=== PATIENT | female | born 1940 | race Caucasian/White ===

== ENCOUNTER 2020-07-07 09:44 | Inpatient (IN) | payer MEDICARE, OTHER ==
[~2020-07-07] VITALS: Ht 152.4 cm; Wt 53.1 kg
[~2020-07-07 09:44] MED LIST: ASPI-1397 PO; BUSP5TAB3 PO; DOCU-148 PO; DULO30CA52 PO; GABA600T13 PO; HYDR25TA4 PO; INSU100C10 SQ; INSU100V9 SQ; LORA-268 PO; MELO-102 PO; OXYC-658 PO; PANT40TA54 PO; SIMV-42 PO; [UNRECOGNIZED DRUG - CODE] PO
[2020-07-07] MEDS ORDERED: normal saline 1000ML IV soln IVB ONE (10:30)
[2020-07-07 10:55] LABS: BASOPHILS % (AUTO) 0.4 % (0-1); EOSINOPHILS # (AUTO) 0.2 X10'3 (0-0.9); EOSINOPHILS % (AUTO) 4.9 % (0-6); HEMATOCRIT 33.2 % (35.0-45.0); HEMOGLOBIN 10.9 g/dl (12.0-16.0); LYMPHOCYTES # (AUTO) 0.4 X10'3 (1.1-4.8); LYMPHOCYTES % (AUTO) 11.8 % (21-51); MEAN CORPUSCULAR HEMOGLOBIN 30.3 PG (27.0-31.0); MEAN CORPUSCULAR HGB CONC 32.9 g/dL (33.0-36.5); MEAN CORPUSCULAR VOLUME 92.2 FL (78-98); MEAN PLATELET VOLUME 8.3 FL (7.4-10.4); MONOCYTES # (AUTO) 0.6 X10'3 (0-0.9); MONOCYTES % (AUTO) 18.9 % (2-12); NEUTROPHILS # (AUTO) 2.1 X10'3 (1.8-7.7); PLATELET COUNT 219 X10'3 (140-440); RED CELL DISTRIBUTION WIDTH 17.8 % (11.5-14.5); WHITE BLOOD COUNT 3.2 X10'3 (4.5-11.0)
[2020-07-07] MEDS ORDERED: LIDOcaine 1% (10mg/ml) 2ml vial SQ ONE (11:10)
[2020-07-07 11:15] LABS: ALANINE AMINOTRANSFERASE 17 U/L (12-78); ALBUMIN 3.2 G/DL (3.4-5.0); ALBUMIN/GLOBULIN RATIO 0.6 (1.1-1.5); ALKALINE PHOSPHATASE 109 IU/L (46-116); ANION GAP 12 (8-16); ASPARTATE AMINO TRANSFERASE 25 U/L (10-37); BILIRUBIN,TOTAL 0.3 MG/DL (0.1-1.0); BLOOD UREA NITROGEN 28 MG/DL (7-18); BUN/CREATININE RATIO 26.9 (6.6-38.0); CALCIUM 9.9 MG/DL (8.5-10.1); CHLORIDE 103 MMOL/L (99-107); CREATININE 1.04 MG/DL (0.40-0.90); GLUCOSE 151 MG/DL (70-104); LIPASE 93 U/L (73-393); SODIUM 142 MMOL/L (135-145); TOTAL CARBON DIOXIDE 27.3 MMOL/L (24-32); TOTAL PROTEIN 8.3 G/DL (6.4-8.2); eGFR 51 ML/MIN
[2020-07-07 11:16] LABS: POTASSIUM 2.8 MMOL/L (3.5-5.1)
[2020-07-07] MEDS ORDERED: morphine 4 MG/ML inj SYRINge IV ONE (11:25)
[2020-07-07] MEDS: potassium Cl 10 mEq/100mL bag IV SCH ×2 (11:55→13:12)
[2020-07-07] MEDS ORDERED: ondansetron/PF 4mg/2ml inj IV PRN (13:00)
[2020-07-07] MEDS ORDERED: magnesium 4gm in 100ml NS 100 ML IV PRN (13:00)
[2020-07-07] MEDS ORDERED: magnesium 2GM in 50ml NS 50 ML IV PRN (13:00)
[2020-07-07] MEDS ORDERED: acetaminophen 325mg tablet PO PRN ×2 (13:00)
[2020-07-07] MEDS ORDERED: potassium Cl 20 mEq SR tablet PO PRN (13:00)
[2020-07-07] MEDS ORDERED: mag hydrox/Alum hydrox/simeth 30ml oral suspension PO PRN (13:00)
[2020-07-07] MEDS ORDERED: magnesium hydroxide 30ml (MOM) UD suspension PO PRN (13:00)
[2020-07-07] MEDS ORDERED: HYDROcodone/acetaminophen 5mg/325mg tablet PO PRN (13:00)
[2020-07-07] MEDS ORDERED: potassium Cl 40MEQ/1/2NS 520ml 520 ML IV PRN ×2 (13:00)
[2020-07-07 13:25] LABS: PARTIAL THROMBOPLASTIN TIME 30 SECONDS (22-32)
[2020-07-07 14:06] LABS: HEMOGLOBIN A1C 6.8 % (4.5-6.2)
[2020-07-07] MEDS: morphine 2 MG/ML inj. syringe IV PRN ×3 (14:06→23:26)
[2020-07-07] MEDS: diatr meglu/diatrizoate 30ml oral sol.-(3 dose) bottle PO SCH ×3 (14:07→19:47)
[2020-07-07] MEDS: normal saline 1000ml 1,000 ML IV SCH (14:54)
[2020-07-07 15:00] VITALS: BP 129/55
[2020-07-07 16:04] LABS: MAGNESIUM 1.6 MG/DL (1.5-2.4); POTASSIUM 3.6 MMOL/L (3.5-5.1)
--- NOTE | 2020-07-07 16:23 | NUR ---
PAGER ID: [phone] MESSAGE: ARYAN BEE. PT REQ IMMODIUM AD. NICKI [phone]
[2020-07-07] MEDS ORDERED: loperamide 2mg capsule PO PRN (16:25)
--- NOTE | 2020-07-07 17:23 | NUR ---
PAGER ID: [phone] MESSAGE: ARYAN BEE. PT DIABETIC. NO PROTOCOL ORDERED! NICKI [phone]
[2020-07-07] MEDS ORDERED: MESSAGE TO PHARMACY PO ONE (17:25)
[2020-07-07] MEDS ORDERED: dextrose ORAL solution 15 GM/59 ML bottle PO PRN ×2 (17:25)
[2020-07-07] MEDS ORDERED: glucagon, human recombinant 1mg kit SUBCUT PRN (17:25)
[2020-07-07] MEDS ORDERED: dextrose 50%-water 50ml dispensing syringe IV PRN ×2 (17:25)
[2020-07-07 18:00] VITALS: BP 122/84
[2020-07-07] MEDS ORDERED: iohexol 300mg/ml 100ml inj. ONE (18:45)
--- NOTE | 2020-07-07 18:46 | NUR ---
Patient in room ORTHO 4011. I have received report from NICKI BRAN and had the opportunity to ask questions and assume patient care.
[2020-07-07] MEDS ORDERED: HYDR-3972 PO (19:03)
[2020-07-07] MEDS ORDERED: GABA600T13 PO (19:03)
[2020-07-07] MEDS ORDERED: ASPI-1397 PO (19:03)
[2020-07-07] MEDS: insulin Lispro (HumaLOG) vial - multi-dose SQ SCH (19:03)
[2020-07-07] MEDS ORDERED: IBUP-860 PO (19:03)
--- NOTE | 2020-07-07 19:59 | NUR ---
TO CT NOW VIA W/C FOR ABDOMEN/PELVIC STUDY ORDERED. 3RD DOSE OF GASTROGRAPH GIVEN ORDERED.
[2020-07-07] MEDS: K and/or MAG REPLACEMENT MC SCH (20:00)
--- NOTE | 2020-07-07 20:10 | NUR ---
BACK IN ROOM. CT COMPLETED. PATIENT ASKING FOR SOMETHING TO EAT BUT HAS NPO ORDER. WILL F/U WITH
[2020-07-07] MEDS: insulin glargine (Lantus) pen - multi-dose SQ SCH (21:00)
[2020-07-07] MEDS ORDERED: temazepam 15mg capsule PO PRN (21:00)
[2020-07-07 22:00] VITALS: BP 121/67
--- NOTE | 2020-07-07 23:39 | NUR ---
AWAKENED FROM SOUND SLEEP WITH EXCRUTIATING ABDOMINAL PAIN. MORPHINE GIVEN IVP AND PAIN SLOWLY ABATED TO THE POINT SHE WAS ABLE TO GET UP TO THE BEDSIDE COMMODE TO VOID. BACK TO BED AND POSITIONED FOR COMFORT FOB UP. CALL LIGHT GIVEN TO PATIENT AND ENC'D IT'S USE FOR NEEDS.
[2020-07-08] MEDS: HYDROcodone/acetaminophen 10/325mg tab PO PRN (01:13)
[2020-07-08] MEDS: normal saline 1000ml 1,000 ML IV SCH ×3 (01:51→19:05)
[2020-07-08] MEDS ORDERED: LORazepam 0.5 MG tablet PO ONE (05:55)
[2020-07-08 06:00] VITALS: BP 132/64
--- NOTE | 2020-07-08 06:31 | NUR ---
Patient in room ORTHO 4011. I have received report from DELORES torres and had the opportunity to ask questions and assume patient care.
--- NOTE | 2020-07-08 06:44 | NUR ---
Problems reprioritized. Patient report given, questions answered & plan of care reviewed with DANILO BRAN.
--- NOTE | 2020-07-08 07:05 | NUR ---
PAGER ID: [phone] MESSAGE: DANILO BRAN [phone] RE: Kassy Rodriguez [id number].. PT IS HAVING ANXIETY ATTACK. PT TAKES ATIVAN AT HOME. CAN I PLEASE HAVE ORDER. THANK YOU.
[2020-07-08 07:13] LABS: BASOPHILS % (AUTO) 0.6 % (0-1); EOSINOPHILS # (AUTO) 0.1 X10'3 (0-0.9); EOSINOPHILS % (AUTO) 5.7 % (0-6); HEMATOCRIT 29.2 % (35.0-45.0); HEMOGLOBIN 9.5 g/dl (12.0-16.0); LYMPHOCYTES # (AUTO) 0.4 X10'3 (1.1-4.8); LYMPHOCYTES % (AUTO) 20.3 % (21-51); MEAN CORPUSCULAR HEMOGLOBIN 30.2 PG (27.0-31.0); MEAN CORPUSCULAR HGB CONC 32.7 g/dL (33.0-36.5); MEAN CORPUSCULAR VOLUME 92.3 FL (78-98); MEAN PLATELET VOLUME 8.3 FL (7.4-10.4); MONOCYTES # (AUTO) 0.6 X10'3 (0-0.9); MONOCYTES % (AUTO) 26.4 % (2-12); PLATELET COUNT 154 X10'3 (140-440); RED BLOOD COUNT 3.16 X10'6 (4.20-5.60); RED CELL DISTRIBUTION WIDTH 17.7 % (11.5-14.5); WHITE BLOOD COUNT 2.2 X10'3 (4.5-11.0)
[2020-07-08 07:29] LABS: ALANINE AMINOTRANSFERASE 15 U/L (12-78); ALBUMIN 2.6 G/DL (3.4-5.0); ALBUMIN/GLOBULIN RATIO 0.6 (1.1-1.5); ALKALINE PHOSPHATASE 93 IU/L (46-116); ANION GAP 15 (8-16); ASPARTATE AMINO TRANSFERASE 26 U/L (10-37); BILIRUBIN,TOTAL 0.4 MG/DL (0.1-1.0); BLOOD UREA NITROGEN 18 MG/DL (7-18); BUN/CREATININE RATIO 35.3 (6.6-38.0); CHLORIDE 102 MMOL/L (99-107); CREATININE 0.51 MG/DL (0.40-0.90); GLUCOSE 174 MG/DL (70-104); MAGNESIUM 1.4 MG/DL (1.5-2.4); POTASSIUM 3.2 MMOL/L (3.5-5.1); SODIUM 141 MMOL/L (135-145); TOTAL CARBON DIOXIDE 24.4 MMOL/L (24-32); TOTAL PROTEIN 7.2 G/DL (6.4-8.2); eGFR > 90 ML/MIN
--- NOTE | 2020-07-08 07:36 | NUR ---
PAGER ID: [phone] MESSAGE: DANILO [id number] RE: ARYAN BEE [id number]. 2ND. PT WOULD LIKE HOME MED ATIVAN WELLAS DIET. THANK YOU.
[2020-07-08] MEDS: K and/or MAG REPLACEMENT MC SCH ×2 (08:12→20:00)
[2020-07-08] MEDS ORDERED: LORA-268 PO (08:16)
[2020-07-08] MEDS: LORazepam 1 MG tablet PO PRN ×2 (08:16→15:13)
[2020-07-08] MEDS ORDERED: SIMV-42 PO (08:16)
[2020-07-08] MEDS ORDERED: HYDR25TA4 PO (08:16)
[2020-07-08] MEDS: busPIRone 5mg tablet PO SCH ×3 (08:16→20:54)
[2020-07-08] MEDS ORDERED: INSU100V9 SQ (08:16)
[2020-07-08] MEDS: potassium Cl 20 mEq SR tablet PO PRN ×2 (08:17→18:56)
[2020-07-08] MEDS: magnesium Cl slow-release 64mg tablet PO PRN ×2 (08:18→18:56)
[2020-07-08] MEDS ORDERED: pneumococcal 23-VAL P-sac vacc 25 mcg/0.5ml vial IMVAC ONE (08:50)
[2020-07-08] MEDS: insulin Lispro (HumaLOG) vial - multi-dose SQ SCH ×3 (09:45→19:03)
[2020-07-08 10:00] VITALS: BP 153/72
--- NOTE | 2020-07-08 10:37 | NUR ---
DM/Malnutrition Consults: Pt hx T2DM A1C 6.8 appropriate given age. Pt admit w/ increased abdominal pain past week hx pancreatic CA receiving radiation currently and s/p Whipple procedure April 25 per EMR. Amount of wt loss not reported in nursing malnutrition screen. Pt has normal strength, no edema/wounds, and PO pending as diet just advanced to carb controlled today from prior NPO. Though wt loss may be possible given pt hx currently lacks minimum of two malnutrition criteria at this time. Will monitor for additional criteria this admit. Addendum: 07/08/20 at [address] Amended: Links added.
[2020-07-08 10:57] LABS: ANISOCYTOSIS 1+; HYPOCHROMASIA 2+; PLATELET ESTIMATE NORMAL; TOTAL CELLS COUNTED 100
[2020-07-08] MEDS: morphine 2 MG/ML inj. syringe IV PRN ×3 (12:26→21:03)
[2020-07-08] MEDS: loperamide 2mg capsule PO PRN (13:33)
--- NOTE | 2020-07-08 14:28 | NUR ---
Upon returning for lunch at 1410, charge nurse informed primary nurse of patients passing. notified, Cheko Mccormick called and notified. Multiple attempts to call family however unsuccessful. Will continue to try and reach next of kin.
[2020-07-08] MEDS: diphenhydrAMINE 50 mg/ml inj IV PRN (14:58)
[2020-07-08] MEDS: predniSONE 20 mg tablet PO SCH (15:27)
[2020-07-08 18:00] VITALS: BP 168/72
--- NOTE | 2020-07-08 18:41 | NUR ---
Problems reprioritized. Patient report given, questions answered & plan of care reviewed with Fatoumata BRAN.
[2020-07-08] MEDS: insulin glargine (Lantus) pen - multi-dose SQ SCH (21:01)
[2020-07-08 22:00] VITALS: BP 150/71
[2020-07-09] MEDS: potassium Cl 20 mEq SR tablet PO PRN (00:16)
[2020-07-09] MEDS: LORazepam 1 MG tablet PO PRN ×2 (00:16→07:33)
[2020-07-09] MEDS: loperamide 2mg capsule PO PRN ×2 (01:09→08:39)
[2020-07-09] MEDS: normal saline 1000ml 1,000 ML IV SCH ×2 (04:54→15:00)
[2020-07-09] MEDS: morphine 2 MG/ML inj. syringe IV PRN ×2 (04:54→11:15)
[2020-07-09 06:00] VITALS: BP 134/50
--- NOTE | 2020-07-09 06:28 | NUR ---
Problems reprioritized. Patient report given, questions answered & plan of care reviewed with YINA CARRASCO.
--- NOTE | 2020-07-09 06:53 | NUR ---
Patient in room ORTHO 4011. I have received report from DORITA BRAN and had the opportunity to ask questions and assume patient care.
[2020-07-09] MEDS: busPIRone 5mg tablet PO SCH ×2 (07:32→12:41)
[2020-07-09] MEDS: predniSONE 20 mg tablet PO SCH (07:33)
[2020-07-09] MEDS: K and/or MAG REPLACEMENT MC SCH (08:00)
[2020-07-09] MEDS: insulin Lispro (HumaLOG) vial - multi-dose SQ SCH ×2 (08:41→14:01)
[2020-07-09] MEDS: HYDROcodone/acetaminophen 10/325mg tab PO PRN ×2 (09:42→16:18)
[2020-07-09 10:00] VITALS: BP 180/83
[2020-07-09 10:08] LABS: BASOPHILS % (AUTO) 0.3 % (0-1); EOSINOPHILS % (AUTO) 0.1 % (0-6); HEMATOCRIT 28.5 % (35.0-45.0); HEMOGLOBIN 9.3 g/dl (12.0-16.0); LYMPHOCYTES # (AUTO) 0.3 X10'3 (1.1-4.8); MEAN CORPUSCULAR HEMOGLOBIN 29.9 PG (27.0-31.0); MEAN CORPUSCULAR HGB CONC 32.6 g/dL (33.0-36.5); MEAN CORPUSCULAR VOLUME 91.7 FL (78-98); MEAN PLATELET VOLUME 8.1 FL (7.4-10.4); MONOCYTES # (AUTO) 0.3 X10'3 (0-0.9); MONOCYTES % (AUTO) 13.3 % (2-12); NEUTROPHILS # (AUTO) 1.9 X10'3 (1.8-7.7); NEUTROPHILS % (AUTO) 76.3 % (42-75); PLATELET COUNT 161 X10'3 (140-440); RED BLOOD COUNT 3.11 X10'6 (4.20-5.60); RED CELL DISTRIBUTION WIDTH 17.7 % (11.5-14.5); WHITE BLOOD COUNT 2.5 X10'3 (4.5-11.0)
[2020-07-09 10:21] LABS: ALANINE AMINOTRANSFERASE 17 U/L (12-78); ALBUMIN 2.4 G/DL (3.4-5.0); ALBUMIN/GLOBULIN RATIO 0.5 (1.1-1.5); ALKALINE PHOSPHATASE 84 IU/L (46-116); ANION GAP 11 (8-16); ASPARTATE AMINO TRANSFERASE 21 U/L (10-37); BILIRUBIN,TOTAL 0.2 MG/DL (0.1-1.0); BLOOD UREA NITROGEN 17 MG/DL (7-18); BUN/CREATININE RATIO 30.4 (6.6-38.0); CALCIUM 8.9 MG/DL (8.5-10.1); CHLORIDE 107 MMOL/L (99-107); CREATININE 0.56 MG/DL (0.40-0.90); GLUCOSE 228 MG/DL (70-104); MAGNESIUM 1.3 MG/DL (1.5-2.4); POTASSIUM 3.9 MMOL/L (3.5-5.1); SODIUM 144 MMOL/L (135-145); TOTAL CARBON DIOXIDE 25.9 MMOL/L (24-32); TOTAL PROTEIN 6.8 G/DL (6.4-8.2); eGFR > 90 ML/MIN
[2020-07-09 11:01] LABS: ANISOCYTOSIS 1+; HYPOCHROMASIA 1+; PLATELET ESTIMATE NORMAL; TOTAL CELLS COUNTED 100
[2020-07-09] MEDS: magnesium Cl slow-release 64mg tablet PO PRN (11:10)
[2020-07-09] MEDS: diphenhydrAMINE 50 mg/ml inj IV PRN (11:15)
[2020-07-09] MEDS ORDERED: OXYC-145 PO (13:50)
[2020-07-09] MEDS ORDERED: heparin sodium, porcine/PF 100unit/ml 5ML syringe IV SCH (15:10)
--- NOTE | 2020-07-09 16:00 | NUR ---
CONFIRMED WITH DR FLOWERS HEPARIN 500 UNITS TO BE LOADED INTO PORT PRIOR TO DEACCESS. PER , ORDER HEPARIN FLUSH AND GIVE. Ty CARVER PICC RN
--- NOTE | 2020-07-09 17:01 | NUR ---
PORT LOADED WITH HEPARIN 500 UNITS AFTER CHECKING FOR BLOOD RETURN AND FLUSH. PORT THEN DEACCESSED USING STERILE TECHNIQUE. Ty CARVER PICC YINA
--- NOTE | 2020-07-09 17:35 | NUR ---
Pt discharged at 1700 with in private vehicle. Portacath removed from picc nurse without complications. Belongings sent with patient. all questions reviewed/ answered
== END 2020-07-09 17:00 | disposition home or self-care (01) | DRG 815 ==
LOC: ER 09:45 → ED HOLD 12:58 → ORTHO 4S 14:28
PROVIDERS: ADMIT Family Medicine; ATTEND Family Medicine
PROC: BW211ZZ Computerized Tomography (CT Scan) of Abdomen and Pelvis using Low Osmolar Contrast (ICD-10-PCS; 2020-07-07)
PROC: 3E0234Z Introduction of Serum, Toxoid and Vaccine into Muscle, Percutaneous Approach (ICD-10-PCS; principal; 2020-07-08)
DX: D73.5 Infarction of spleen (principal); C25.9 Malignant neoplasm of pancreas, unspecified; L29.9 Pruritus, unspecified; D64.9 Anemia, unspecified; E11.42 Type 2 diabetes mellitus with diabetic polyneuropathy; E78.5 Hyperlipidemia, unspecified; K21.9 Gastro-esophageal reflux disease without esophagitis; E87.6 Hypokalemia; F41.1 Generalized anxiety disorder; I10 Essential (primary) hypertension; Z87.442 Personal history of urinary calculi; Z90.411 Acquired partial absence of pancreas; Z90.49 Acquired absence of other specified parts of digestive tract; Z23 Encounter for immunization
CPT/HCPCS: 36415; 74177; 80053; 82948; 83036; 83690; 83735; 84132; 85007; 85025; 85610; 85730; 87081; 96374; 96375; 97116; 97162; 97530; 99285; G0378; J1200; J1642; J1815; J2001; J2270; J3480; J7030; J7512; Q9963; Q9967

== ENCOUNTER 2020-09-04 08:32 | Outpatient (CLI) | payer MEDICARE ==
[~2020-09-04 08:32] MED LIST changes: -BUSP5TAB3 PO; -DOCU-148 PO; -DULO30CA52 PO; +HYDR-3972 PO; +IBUP-860 PO; -INSU100C10 SQ; -MELO-102 PO; +OXYC-145 PO; -OXYC-658 PO; -PANT40TA54 PO; -[UNRECOGNIZED DRUG - CODE] PO
[2020-09-04] MEDS ORDERED: iohexol 300mg/ml 100ml inj. ONE (09:04)
== END 2020-09-04 23:59 | disposition home or self-care (01) ==
LOC: 64 CT 08:32
PROVIDERS: ATTEND Internal Medicine
DX: C25.0 Malignant neoplasm of head of pancreas (principal); J47.9 Bronchiectasis, uncomplicated; J98.4 Other disorders of lung; J98.11 Atelectasis
CPT/HCPCS: 71260; 74177; Q9967

== ENCOUNTER 2020-11-12 20:33 | Inpatient (IN) | payer MEDICARE ==
[~2020-11-12] VITALS: Ht 152.4 cm; Wt 61.4 kg
[2020-11-12] MEDS ORDERED: iohexol 300mg/ml 100ml inj. ONE (20:59)
[2020-11-12] MEDS ORDERED: dextrose 5%-normal saline 1,000 ML IV ONE (21:00)
[2020-11-12 21:55] LABS: BASOPHILS % (AUTO) 0.2 % (0-1); EOSINOPHILS # (AUTO) 0.1 X10'3 (0-0.9); EOSINOPHILS % (AUTO) 0.8 % (0-6); HEMATOCRIT 35.4 % (35.0-45.0); HEMOGLOBIN 11.4 g/dl (12.0-16.0); LYMPHOCYTES # (AUTO) 0.4 X10'3 (1.1-4.8); LYMPHOCYTES % (AUTO) 5.7 % (21-51); MEAN CORPUSCULAR HEMOGLOBIN 33.8 PG (27.0-31.0); MEAN CORPUSCULAR HGB CONC 32.3 g/dL (33.0-36.5); MEAN CORPUSCULAR VOLUME 104.7 FL (78-98); MEAN PLATELET VOLUME 7.2 FL (7.4-10.4); MONOCYTES # (AUTO) 0.7 X10'3 (0-0.9); MONOCYTES % (AUTO) 11.7 % (2-12); NEUTROPHILS # (AUTO) 5.2 X10'3 (1.8-7.7); NEUTROPHILS % (AUTO) 81.6 % (42-75); PLATELET COUNT 254 X10'3 (140-440); RED BLOOD COUNT 3.38 X10'6 (4.20-5.60); RED CELL DISTRIBUTION WIDTH 15.6 % (11.5-14.5); WHITE BLOOD COUNT 6.3 X10'3 (4.5-11.0)
[2020-11-12 22:03] LABS: ALANINE AMINOTRANSFERASE 47 U/L (12-78); ALBUMIN/GLOBULIN RATIO 0.6 (1.1-1.5); ALKALINE PHOSPHATASE 187 IU/L (46-116); ANION GAP 7 (8-16); ASPARTATE AMINO TRANSFERASE 63 U/L (10-37); BILIRUBIN,TOTAL 0.4 MG/DL (0.1-1.0); BLOOD UREA NITROGEN 16 MG/DL (7-18); BUN/CREATININE RATIO 20.3 (6.6-38.0); CALCIUM 8.9 MG/DL (8.5-10.1); CHLORIDE 102 MMOL/L (99-107); CREATININE 0.79 MG/DL (0.40-0.90); GLUCOSE 115 MG/DL (70-104); POTASSIUM 3.3 MMOL/L (3.5-5.1); SODIUM 139 MMOL/L (135-145); TOTAL CARBON DIOXIDE 29.6 MMOL/L (24-32); TOTAL PROTEIN 7.7 G/DL (6.4-8.2); eGFR 70 ML/MIN
[2020-11-12 22:06] LABS: MAGNESIUM 1.9 MG/DL (1.5-2.4); TROPONIN I 0.07 NG/ML (0.0-0.05)
[2020-11-12] MEDS ORDERED: CefTRIAXone 2gm/D5W 50ml BAG 50 ML IV ONE (22:30)
[2020-11-12] MEDS ORDERED: vancomycin/NS 1 GM ADD-VANTAGE 250 ML IV ONE (22:30)
[2020-11-12] MEDS ORDERED: LORazepam 2 mg/ml vial IV ONE (22:50)
[2020-11-12] MEDS ORDERED: Melatonin 3mg tablet PO ONE (22:59)
[2020-11-12] MEDS ORDERED: PEG 3350/Na sulf,bicarb,Cl/KCl oral sol 4 liter bottle PO ONE (23:45)
[2020-11-12] MEDS ORDERED: methylnaltrexone br 12mg/0.6ml inj***SubQ only SQ ONE (23:55)
[2020-11-13] MEDS ORDERED: magnesium hydroxide 30ml (MOM) UD suspension PO PRN (00:05)
[2020-11-13] MEDS ORDERED: dextrose ORAL solution 15 GM/59 ML bottle PO PRN ×2 (00:05)
[2020-11-13] MEDS ORDERED: acetaminophen 325mg tablet PO PRN ×2 (00:05)
[2020-11-13] MEDS ORDERED: ondansetron/PF 4mg/2ml inj IV PRN (00:05)
[2020-11-13] MEDS ORDERED: mag hydrox/Alum hydrox/simeth 30ml oral suspension PO PRN (00:05)
[2020-11-13] MEDS ORDERED: dextrose 50%-water 50ml dispensing syringe IV PRN ×2 (00:05)
[2020-11-13] MEDS ORDERED: MESSAGE TO PHARMACY PO ONE (00:05)
[2020-11-13] MEDS ORDERED: glucagon, human recombinant 1mg kit SUBCUT PRN (00:05)
[2020-11-13] MEDS ORDERED: normal saline 1000ml 1,000 ML IV SCH (00:05)
--- NOTE | 2020-11-13 00:22 | NUR ---
BGL 73
--- NOTE | 2020-11-13 00:23 | NUR ---
PT RECEIVED ATIVAN AND IS DROWSY, UNABLE TO GIVE GOLYTELY AT THIS TIME. WILL TRY AGAIN LATER.
[2020-11-13] MEDS ORDERED: LEVO50TA8 PO (01:22)
[2020-11-13] MEDS ORDERED: BUSP10TA3 PO (01:23)
[2020-11-13] MEDS ORDERED: MELO-102 PO (01:26)
[2020-11-13 01:57] LABS: HEMOGLOBIN A1C 8.6 % (4.5-6.2)
--- NOTE | 2020-11-13 02:10 | NUR ---
title closer, Veronica, received report. Pt arrived on the unit via gurney and a slide board was used to transfer her into bed. She was on 2L via nasal cannula, with D5NS running at 50 mls/hr. accompanied pt to floor and took her belongings home with him. Pt has no signs of distress, will continue to monitor.
[2020-11-13] MEDS ORDERED: INSU100V13 SQ (02:29)
[2020-11-13] MEDS ORDERED: PRE5T PO (02:29)
[2020-11-13] MEDS ORDERED: LEVO75CA5 PO (02:29)
[2020-11-13 02:47] VITALS: BP 119/67
[2020-11-13] MEDS ORDERED: LORazepam 2 mg/ml vial IV PRN (03:20)
[2020-11-13] MEDS ORDERED: dextrose 5%-1/2 normal saline 1,000 ML IV SCH (03:20)
[2020-11-13] MEDS ORDERED: LORazepam 0.5 MG tablet PO PRN (05:10)
[2020-11-13] MEDS ORDERED: HYDR-3686 PO (05:40)
--- NOTE | 2020-11-13 06:25 | NUR ---
Problems reprioritized. Patient report given, questions answered & plan of care reviewed with Pavel RN.
--- NOTE | 2020-11-13 06:51 | NUR ---
Patient in room CAMIL[facility] 346. I have received report from LETY BRAN and had the opportunity to ask questions and assume patient care.
[2020-11-13 07:11] VITALS: BP 115/65
[2020-11-13] MEDS ORDERED: vancomycin/NS 1 GM ADD-VANTAGE 250 ML X 1 DOSE IV ONE (08:25)
[2020-11-13] MEDS: docusate sod 100mg capsule PO SCH ×2 (08:31→19:39)
[2020-11-13] MEDS: levoTHYROXINE 25mcg tablet PO SCH (08:32)
[2020-11-13] MEDS: gabapentin 300mg capsule PO SCH ×3 (08:33→19:38)
[2020-11-13] MEDS: HYDROchlorothiazide 25mg tablet PO SCH (08:34)
[2020-11-13] MEDS: busPIRone 5mg tablet PO SCH ×2 (08:35→19:38)
[2020-11-13] MEDS: morphine 2 MG/ML inj. syringe IV PRN ×3 (08:36→21:12)
[2020-11-13] MEDS: piperacillin/tazo 4.5gm/100ml 100 ML IV SCH ×2 (08:49→16:54)
[2020-11-13 09:29] LABS: BASOPHILS % (AUTO) 0.4 % (0-1); EOSINOPHILS % (AUTO) 0.9 % (0-6); HEMATOCRIT 27.5 % (35.0-45.0); HEMOGLOBIN 8.9 g/dl (12.0-16.0); LYMPHOCYTES # (AUTO) 0.3 X10'3 (1.1-4.8); LYMPHOCYTES % (AUTO) 5.9 % (21-51); MEAN CORPUSCULAR HEMOGLOBIN 33.7 PG (27.0-31.0); MEAN CORPUSCULAR HGB CONC 32.5 g/dL (33.0-36.5); MEAN CORPUSCULAR VOLUME 103.7 FL (78-98); MEAN PLATELET VOLUME 7.3 FL (7.4-10.4); MONOCYTES # (AUTO) 0.5 X10'3 (0-0.9); NEUTROPHILS # (AUTO) 4.4 X10'3 (1.8-7.7); NEUTROPHILS % (AUTO) 82.8 % (42-75); PLATELET COUNT 203 X10'3 (140-440); RED BLOOD COUNT 2.66 X10'6 (4.20-5.60); RED CELL DISTRIBUTION WIDTH 15.2 % (11.5-14.5); WHITE BLOOD COUNT 5.3 X10'3 (4.5-11.0)
[2020-11-13 09:45] LABS: ALANINE AMINOTRANSFERASE 39 U/L (12-78); ALBUMIN 2.2 G/DL (3.4-5.0); ALBUMIN/GLOBULIN RATIO 0.6 (1.1-1.5); ALKALINE PHOSPHATASE 137 IU/L (46-116); ANION GAP 9 (8-16); ASPARTATE AMINO TRANSFERASE 46 U/L (10-37); BILIRUBIN,TOTAL 0.3 MG/DL (0.1-1.0); BLOOD UREA NITROGEN 12 MG/DL (7-18); BUN/CREATININE RATIO 16.4 (6.6-38.0); CALCIUM 7.5 MG/DL (8.5-10.1); CHLORIDE 101 MMOL/L (99-107); CREATININE 0.73 MG/DL (0.40-0.90); GLUCOSE 202 MG/DL (70-104); POTASSIUM 3.7 MMOL/L (3.5-5.1); SODIUM 138 MMOL/L (135-145); TOTAL CARBON DIOXIDE 28.5 MMOL/L (24-32); TOTAL PROTEIN 5.8 G/DL (6.4-8.2); eGFR 77 ML/MIN
[2020-11-13 11:00] VITALS: BP 95/63
[2020-11-13 11:47] LABS: CLARITY,URINE CLEAR (Clear); COLOR,URINE YELLOW (Yellow); GLUCOSE, URINE 250 mg/dl (Neg); KETONES,URINE NEGATIVE (Neg); LEUKOCYTE ESTERASE ,URINE NEGATIVE (Neg); NITRITES, URINE NEGATIVE (Neg); OCCULT BLOOD,URINE NEGATIVE (Neg); PROTEIN,URINE NEGATIVE (Neg); UROBILINOGEN,URINE 0.2 E.U/dL (0.2-1.0)
[2020-11-13 11:49] LABS: UA COLLECTION TYPE NON-SPECIFIED
--- NOTE | 2020-11-13 14:00 | NUR ---
Malnutrition consult: Pt reports 24-33 lb wt loss with decreased appetite per EMR. Current documented scaled wt is -3.54 kg from scaled wt hx in EMR 05/15/20, this is non-significant wt loss of 5.4% in 6 months. Pt on a CHO controlled diet, pending first meal since diet advancement from NPO. Pt with no documented significant decrease in muscle strength or edema. Pt currently lacks a minimum of two criteria for malnutrition. Noted pt with T2DM, current A1c is 8.6%, well controlled for age. DM education not warranted at this time. Pt admit for hypoglycemia. Per H&P pt reports taking insulin though hadn't eaten prior to medical record retrieval specialist. Will continue to follow. Addendum: 11/13/20 at [address] Amended: Links added.
[2020-11-13 18:00] VITALS: BP 114/66
[2020-11-13] MEDS ORDERED: CYCL-1 PO (18:18)
--- NOTE | 2020-11-13 18:33 | NUR ---
Problems reprioritized. Patient report given, questions answered & plan of care reviewed with Sugar BRAN.
--- NOTE | 2020-11-13 18:34 | NUR ---
Patient in room CAMILLE 346. I have received report from Pavel BRAN and had the opportunity to ask questions and assume patient care.
[2020-11-13] MEDS: lactobacillus rhamnosus 10,000 MMU CELLS/CAPSULE PO SCH (19:38)
[2020-11-13] MEDS: atorvastatin 10mg tablet PO SCH (19:48)
[2020-11-13] MEDS: normal saline 1000ml 1,000 ML IV SCH (20:08)
[2020-11-13] MEDS: insulin glargine (Lantus) pen - multi-dose SQ SCH (22:07)
[2020-11-13] MEDS: vancomycin/NS 1 GM ADD-VANTAGE 250 ML X 1 DOSE IV SCH (22:17)
[2020-11-14] VITALS: BP 111/62
[2020-11-14] MEDS: piperacillin/tazo 4.5gm/100ml 100 ML IV SCH ×3 (00:41→16:31)
[2020-11-14] MEDS: morphine 2 MG/ML inj. syringe IV PRN ×4 (01:19→20:36)
[2020-11-14 06:14] LABS: EOSINOPHILS # (AUTO) 0.1 X10'3 (0-0.9); HEMATOCRIT 25.4 % (35.0-45.0); LYMPHOCYTES # (AUTO) 0.4 X10'3 (1.1-4.8); NEUTROPHILS # (AUTO) 2.7 X10'3 (1.8-7.7); RED BLOOD COUNT 2.45 X10'6 (4.20-5.60)
[2020-11-14 06:17] LABS: BASOPHILS % (AUTO) 0.9 % (0-1); EOSINOPHILS % (AUTO) 1.5 % (0-6); HEMOGLOBIN 8.3 g/dl (12.0-16.0); LYMPHOCYTES % (AUTO) 11.6 % (21-51); MEAN CORPUSCULAR HEMOGLOBIN 33.9 PG (27.0-31.0); MEAN CORPUSCULAR HGB CONC 32.7 g/dL (33.0-36.5); MEAN PLATELET VOLUME 7.4 FL (7.4-10.4); MONOCYTES # (AUTO) 0.6 X10'3 (0-0.9); MONOCYTES % (AUTO) 14.7 % (2-12); NEUTROPHILS % (AUTO) 71.3 % (42-75); PLATELET COUNT 193 X10'3 (140-440); RED CELL DISTRIBUTION WIDTH 15.3 % (11.5-14.5); WHITE BLOOD COUNT 3.9 X10'3 (4.5-11.0)
[2020-11-14 06:27] LABS: ALANINE AMINOTRANSFERASE 36 U/L (12-78); ALBUMIN 2.1 G/DL (3.4-5.0); ALBUMIN/GLOBULIN RATIO 0.6 (1.1-1.5); ALKALINE PHOSPHATASE 150 IU/L (46-116); ANION GAP 7 (8-16); ASPARTATE AMINO TRANSFERASE 50 U/L (10-37); BILIRUBIN,TOTAL 0.2 MG/DL (0.1-1.0); BLOOD UREA NITROGEN 14 MG/DL (7-18); BUN/CREATININE RATIO 15.1 (6.6-38.0); CALCIUM 7.6 MG/DL (8.5-10.1); CHLORIDE 105 MMOL/L (99-107); CREATININE 0.93 MG/DL (0.40-0.90); GLUCOSE 116 MG/DL (70-104); POTASSIUM 3.7 MMOL/L (3.5-5.1); SODIUM 142 MMOL/L (135-145); TOTAL PROTEIN 5.5 G/DL (6.4-8.2); eGFR 58 ML/MIN
--- NOTE | 2020-11-14 06:52 | NUR ---
Problems reprioritized. Patient report given, questions answered & plan of care reviewed with Diamante BRAN.
--- NOTE | 2020-11-14 06:57 | NUR ---
Patient in room CAMILLE 346. I have received report from YINA Wooten and had the opportunity to ask questions and assume patient care.
[2020-11-14 07:00] VITALS: BP 107/68
[2020-11-14] MEDS: docusate sod 100mg capsule PO SCH ×2 (10:07→19:48)
[2020-11-14] MEDS: levoTHYROXINE 25mcg tablet PO SCH (10:07)
[2020-11-14] MEDS: gabapentin 300mg capsule PO SCH ×2 (10:07→19:48)
[2020-11-14] MEDS: lactobacillus rhamnosus 10,000 MMU CELLS/CAPSULE PO SCH ×2 (10:07→19:48)
[2020-11-14] MEDS: HYDROchlorothiazide 25mg tablet PO SCH (10:07)
[2020-11-14] MEDS: insulin Lispro (HumaLOG) vial - multi-dose SQ SCH ×2 (10:18→13:45)
[2020-11-14] MEDS: normal saline 1000ml 1,000 ML IV SCH (10:23)
[2020-11-14 11:00] VITALS: BP 122/73
[2020-11-14] MEDS: busPIRone 5mg tablet PO SCH ×2 (12:55→19:48)
[2020-11-14] MEDS ORDERED: cyclobenzaprine 10mg tablet PO PRN (15:45)
[2020-11-14] MEDS: oxyCODONE/APAP 5-325mg tablet PO PRN (18:03)
--- NOTE | 2020-11-14 18:16 | NUR ---
Problems reprioritized. Patient report given, questions answered & plan of care reviewed with YINA Palm.
--- NOTE | 2020-11-14 18:39 | NUR ---
Patient in room CAMILLE 346. I have received report from Diamante BRAN and had the opportunity to ask questions and assume patient care.
[2020-11-14 18:57] VITALS: BP 119/76
[2020-11-14] MEDS: atorvastatin 10mg tablet PO SCH (20:36)
[2020-11-14] MEDS: insulin glargine (Lantus) pen - multi-dose SQ SCH (21:04)
[2020-11-14] MEDS: vancomycin/NS 1 GM ADD-VANTAGE 250 ML X 1 DOSE IV SCH (22:34)
[2020-11-15] VITALS: BP 97/53
--- NOTE | 2020-11-15 00:30 | NUR ---
Patient in room CAMILLE 346. I have received report from MOI and had the opportunity to ask questions and assume patient care. PT RESTING AT THIS TIME.
[2020-11-15] MEDS: normal saline 1000ml 1,000 ML IV SCH ×2 (00:41→03:28)
--- NOTE | 2020-11-15 00:43 | NUR ---
Problems reprioritized. Patient report given, questions answered & plan of care reviewed with Veronica BRAN.
[2020-11-15] MEDS: piperacillin/tazo 4.5gm/100ml 100 ML IV SCH ×2 (01:08→08:05)
[2020-11-15] MEDS: morphine 2 MG/ML inj. syringe IV PRN (03:25)
[2020-11-15] MEDS: oxyCODONE/APAP 5-325mg tablet PO PRN ×2 (05:08→13:39)
[2020-11-15 06:28] LABS: BASOPHILS % (AUTO) 0.9 % (0-1); EOSINOPHILS # (AUTO) 0.1 X10'3 (0-0.9); EOSINOPHILS % (AUTO) 1.8 % (0-6); HEMATOCRIT 25.7 % (35.0-45.0); HEMOGLOBIN 8.5 g/dl (12.0-16.0); LYMPHOCYTES # (AUTO) 0.5 X10'3 (1.1-4.8); LYMPHOCYTES % (AUTO) 13.2 % (21-51); MEAN CORPUSCULAR HEMOGLOBIN 34.1 PG (27.0-31.0); MEAN CORPUSCULAR VOLUME 103.3 FL (78-98); MEAN PLATELET VOLUME 7.2 FL (7.4-10.4); MONOCYTES # (AUTO) 0.5 X10'3 (0-0.9); MONOCYTES % (AUTO) 14.2 % (2-12); NEUTROPHILS # (AUTO) 2.4 X10'3 (1.8-7.7); NEUTROPHILS % (AUTO) 69.9 % (42-75); PLATELET COUNT 184 X10'3 (140-440); RED BLOOD COUNT 2.49 X10'6 (4.20-5.60); RED CELL DISTRIBUTION WIDTH 15.3 % (11.5-14.5); WHITE BLOOD COUNT 3.5 X10'3 (4.5-11.0)
--- NOTE | 2020-11-15 06:33 | NUR ---
Problems reprioritized. Patient report given, questions answered & plan of care reviewed with
[2020-11-15 06:58] VITALS: BP 152/80
[2020-11-15 07:07] LABS: ALANINE AMINOTRANSFERASE 36 U/L (12-78); ALBUMIN 2.1 G/DL (3.4-5.0); ALBUMIN/GLOBULIN RATIO 0.6 (1.1-1.5); ALKALINE PHOSPHATASE 152 IU/L (46-116); ANION GAP 8 (8-16); ASPARTATE AMINO TRANSFERASE 45 U/L (10-37); BILIRUBIN,TOTAL 0.2 MG/DL (0.1-1.0); BLOOD UREA NITROGEN 14 MG/DL (7-18); BUN/CREATININE RATIO 15.6 (6.6-38.0); CHLORIDE 107 MMOL/L (99-107); GLUCOSE 134 MG/DL (70-104); POTASSIUM 3.9 MMOL/L (3.5-5.1); SODIUM 142 MMOL/L (135-145); TOTAL PROTEIN 5.7 G/DL (6.4-8.2); eGFR 61 ML/MIN
[2020-11-15] MEDS: levoTHYROXINE 25mcg tablet PO SCH (08:02)
[2020-11-15] MEDS: HYDROchlorothiazide 25mg tablet PO SCH (08:03)
[2020-11-15] MEDS: lactobacillus rhamnosus 10,000 MMU CELLS/CAPSULE PO SCH (08:03)
[2020-11-15] MEDS: docusate sod 100mg capsule PO SCH (08:03)
[2020-11-15] MEDS: gabapentin 300mg capsule PO SCH (08:03)
[2020-11-15] MEDS: busPIRone 5mg tablet PO SCH (08:04)
[2020-11-15] MEDS: insulin Lispro (HumaLOG) vial - multi-dose SQ SCH (09:08)
[2020-11-15 11:00] VITALS: BP 126/78
--- NOTE | 2020-11-15 11:23 | NUR ---
DM consult: Received TC from supercharger repair supervisor that pt was wanting to talk to RD about DM management. Pt seen at bedside, pt inquired about insulin administration. Pt informed that RD is unable to assist with this as it is out of scope of practice but would be happy to discuss nutrition therapy for DM management. Pt reports she is already aware of foods that contain carbs. RD provided pt with written DM education with brief verbal review. RD encouraged pt to d/w RN and f/u with physician regarding insulin administration. Pt states she has an appointment with her physician 11/21. RD informed supercharger repair supervisor of d/w pt. Noted pt with h/o Whipple procedure. Pt states she does not have an rx for pancreatic enzymes though does take specific vitamins. RD encouraged pt to f/u with physician regarding pancreatic enzymes and informed pt of multivitamins. All of patient's questions were answered at this time. RD contact information provided and pt encouraged to reach out for further questions. Will remain available. Addendum: 11/15/20 at [address] Amended: Links added.
[2020-11-15] MEDS ORDERED: heparin sodium, porcine/PF 100unit/ml 5ML syringe IV ONE (12:40)
--- NOTE | 2020-11-15 14:35 | NUR ---
PATIENT DISCHARGED HOME WITH . I TALKED TO ANALILIA BIRMINGHAMT ABOUT PT NEEDING DM EDUCATION. CASE MGT SAYS THEY WILL ORDER HOME HEALTH WITH DM MGT TO TEACH. PORTACATH DE-ACCESSED BY SADIQ LEMA RN, PT TOLERATED WELL. ALL BELONGINGS TAKEN FROM ROOM. PT WILL FOLLOW UP WITH DR CUEVAS FOR PET SCAN. ENCOURAGED TO FOLLOW UP WITH PCP. NO NEW MEDS.
[2020-11-15] MEDS ORDERED: VANCOMYCIN LEVEL IV ONE (21:30)
== END 2020-11-15 14:41 | disposition home or self-care (01) | DRG 637 ==
LOC: ER 20:34 → ED HOLD 11-13 00:08 → SUR 3N 11-13 02:21
PROVIDERS: ADMIT Internal Medicine; ATTEND Family Medicine
PROC: BW211ZZ Computerized Tomography (CT Scan) of Abdomen and Pelvis using Low Osmolar Contrast (ICD-10-PCS; principal; 2020-11-12)
DX: E11.649 Type 2 diabetes mellitus with hypoglycemia without coma (principal); G93.41 Metabolic encephalopathy; E87.2 Acidosis; E78.5 Hyperlipidemia, unspecified; E03.9 Hypothyroidism, unspecified; K59.00 Constipation, unspecified; M25.451 Effusion, right hip; M25.551 Pain in right hip; D63.8 Anemia in other chronic diseases classified elsewhere; F41.8 Other specified anxiety disorders; R19.00 Intra-abdominal and pelvic swelling, mass and lump, unspecified site; R77.8 Other specified abnormalities of plasma proteins; E11.42 Type 2 diabetes mellitus with diabetic polyneuropathy; I10 Essential (primary) hypertension; K21.9 Gastro-esophageal reflux disease without esophagitis; Z79.4 Long term (current) use of insulin; Z79.899 Other long term (current) drug therapy; Z85.07 Personal history of malignant neoplasm of pancreas
CPT/HCPCS: 36415; 71045; 73502; 73700; 74177; 80053; 81003; 82948; 83036; 83605; 83735; 83880; 84145; 84484; 85025; 87040; 87081; 93005; 96374; 99285; G0378; J0696; J1815; J2060; J2270; J2543; J3370; J7030; J7042; Q9967

== ENCOUNTER 2020-12-20 07:18 | Inpatient (IN) | payer MEDICARE ==
[~2020-12-20] VITALS: Ht 152.4 cm; Wt 52.0 kg
[~2020-12-20 07:18] MED LIST changes: -ASPI-1397 PO; +BUSP10TA3 PO; +CYCL-1 PO; +HYDR-3686 PO; -HYDR-3972 PO; -IBUP-860 PO; +INSU100V13 SQ; +LEVO50TA8 PO; +MELO-102 PO; +PRE5T PO
[2020-12-20] MEDS ORDERED: normal saline 1000ml 1,000 ML IV ONE (07:35)
[2020-12-20] MEDS ORDERED: dextrose ORAL solution 15 GM/59 ML bottle PO ONE (07:50)
[2020-12-20 08:17] LABS: ALANINE AMINOTRANSFERASE 37 U/L (12-78); ALBUMIN 2.8 G/DL (3.4-5.0); ALBUMIN/GLOBULIN RATIO 0.7 (1.1-1.5); ALKALINE PHOSPHATASE 156 IU/L (46-116); ANION GAP 11 (8-16); ASPARTATE AMINO TRANSFERASE 40 U/L (10-37); BILIRUBIN,DIRECT 0.1 MG/DL (0-0.3); BILIRUBIN,TOTAL 0.3 MG/DL (0.1-1.0); BLOOD UREA NITROGEN 23 MG/DL (7-18); BUN/CREATININE RATIO 31.5 (6.6-38.0); CALCIUM 8.5 MG/DL (8.5-10.1); CHLORIDE 105 MMOL/L (99-107); CREATININE 0.73 MG/DL (0.40-0.90); GLUCOSE 65 MG/DL (70-104); SODIUM 134 MMOL/L (135-145); TOTAL CARBON DIOXIDE 17.9 MMOL/L (24-32); TOTAL PROTEIN 6.6 G/DL (6.4-8.2); eGFR 77 ML/MIN
[2020-12-20 08:19] LABS: BASOPHILS % (AUTO) 0.2 % (0-1); EOSINOPHILS % (AUTO) 0.1 % (0-6); HEMATOCRIT 30.6 % (35.0-45.0); HEMOGLOBIN 10.2 g/dl (12.0-16.0); LYMPHOCYTES # (AUTO) 0.7 X10'3 (1.1-4.8); LYMPHOCYTES % (AUTO) 7.2 % (21-51); MEAN CORPUSCULAR HEMOGLOBIN 34.2 PG (27.0-31.0); MEAN CORPUSCULAR HGB CONC 33.2 g/dL (33.0-36.5); MEAN CORPUSCULAR VOLUME 103.2 FL (78-98); MEAN PLATELET VOLUME 7.3 FL (7.4-10.4); MONOCYTES % (AUTO) 11.6 % (2-12); NEUTROPHILS # (AUTO) 7.3 X10'3 (1.8-7.7); NEUTROPHILS % (AUTO) 80.9 % (42-75); PLATELET COUNT 137 X10'3 (140-440); RED BLOOD COUNT 2.97 X10'6 (4.20-5.60); RED CELL DISTRIBUTION WIDTH 15.7 % (11.5-14.5)
[2020-12-20 08:29] LABS: LIPASE < 50 U/L (73-393)
--- NOTE | 2020-12-20 08:31 | NUR ---
daughter nicole Fox [phone]
[2020-12-20 09:09] LABS: ABG BASE EXCESS -6.4 mmol/L (-2.0-2.0); ABG HCO3 16.8 mmol/L (22.0-26.0); ABG OXYGEN SATURATION 95.2 % (94-97); ABG PCO2 (T) 28.3 mmHg (32.0-45.0); ABG PO2 (T) 84.8 mmHg (75.0-100.0); ALLEN'S TEST POSITIVE; FCOHb 0.4 % (0.0-3.9); FMetHb 0.3 % (0.0-1.5); FO2Hb 94.5 % (94-97); PATIENT TEMPERATURE 38.3; TOTAL HEMOGLOBIN 10.9 G/dl (12.0-16.0)
[2020-12-20] MEDS ORDERED: iohexol 300mg/ml 100ml inj. ONE (10:16)
[2020-12-20] MEDS ORDERED: LORazepam 2 mg/ml vial IV ONE (11:00)
--- NOTE | 2020-12-20 12:56 | NUR ---
pt up to bsc 400ml almost clear liquid stool. stool collected and sent to lab per order
[2020-12-20] MEDS ORDERED: AMYL1CAP52 PO (13:03)
[2020-12-20] MEDS ORDERED: OXYC1TAB17 PO (13:03)
[2020-12-20] MEDS ORDERED: RIFA550T PO (13:03)
[2020-12-20] MEDS ORDERED: DIPH-522 PO (13:03)
[2020-12-20] MEDS ORDERED: potassium Cl 40MEQ/1/2NS 520ml 520 ML IV PRN ×2 (13:25)
[2020-12-20] MEDS ORDERED: magnesium hydroxide 30ml (MOM) UD suspension PO PRN (13:25)
[2020-12-20] MEDS ORDERED: ondansetron/PF 4mg/2ml inj IV PRN (13:25)
[2020-12-20] MEDS ORDERED: morphine 2 MG/ML inj. syringe IV PRN ×2 (13:25)
[2020-12-20] MEDS ORDERED: mag hydrox/Alum hydrox/simeth 30ml oral suspension PO PRN (13:25)
[2020-12-20] MEDS ORDERED: magnesium Cl slow-release 64mg tablet PO PRN (13:25)
[2020-12-20] MEDS ORDERED: HYDROcodone/acetaminophen 5mg/325mg tablet PO PRN (13:25)
[2020-12-20] MEDS ORDERED: magnesium 2GM in 50ml NS 50 ML IV PRN (13:25)
[2020-12-20] MEDS ORDERED: potassium Cl 20 mEq SR tablet PO PRN ×2 (13:25)
[2020-12-20] MEDS ORDERED: magnesium 4gm in 100ml NS 100 ML IV PRN (13:25)
[2020-12-20] MEDS ORDERED: acetaminophen 325mg tablet PO PRN ×2 (13:25)
[2020-12-20] MEDS ORDERED: oxyCODONE/APAP 10/325mg tablet PO PRN (13:30)
[2020-12-20] MEDS ORDERED: MESSAGE TO PHARMACY PO ONE (13:35)
[2020-12-20] MEDS ORDERED: glucagon, human recombinant 1mg kit SUBCUT PRN (13:35)
[2020-12-20] MEDS ORDERED: dextrose 50%-water 50ml dispensing syringe IV PRN ×2 (13:35)
[2020-12-20] MEDS ORDERED: dextrose ORAL solution 15 GM/59 ML bottle PO PRN (13:35)
[2020-12-20 13:39] LABS: C DIFF ANTIGEN NEGATIVE (NEGATIVE); C DIFF SPECIMEN=DIARRHEA? ACCEPTABLE; C DIFFICILE TOXINS A&B NEGATIVE (Neg)
[2020-12-20] MEDS: LORazepam 0.5 MG tablet PO PRN ×2 (14:11→20:38)
[2020-12-20] MEDS: dextrose 5%-1/2 normal saline 1,000 ML IV SCH ×2 (14:13→23:25)
[2020-12-20] MEDS ORDERED: LORazepam 1 MG tablet PO ONE (16:10)
[2020-12-20] MEDS: LIPASE/PROTEASE/AMYLASE 4,200 unit CAPSULE.DR PO SCH (17:00)
[2020-12-20] MEDS ORDERED: LIPASE/PROTEASE/AMYLASE 4,200 unit CAPSULE.DR PO SCH (17:00)
--- NOTE | 2020-12-20 17:27 | NUR ---
Received report from Rich BRAN in ER.
--- NOTE | 2020-12-20 17:56 | NUR ---
Called and wrote to pharmacy. Apparently no staff to bring lipase inhibitor upstairs and no staff up here to go get medication. Primary RN currently giving direct pt. care.
[2020-12-20] MEDS: HYDROcodone/acetaminophen 10/325mg tab PO PRN (17:59)
[2020-12-20 18:04] VITALS: BP 136/68
--- NOTE | 2020-12-20 18:05 | NUR ---
Attempted to gather MRSA swab however pt. "unsure" wether she wants it done or not. Education provided and pt. aware it is hospital policy, however she declines to accept or refuse at this time.
--- NOTE | 2020-12-20 18:28 | NUR ---
Gave report to Esther BRAN traveler.
[2020-12-20] MEDS: docusate sod 100mg capsule PO SCH (20:00)
[2020-12-20] MEDS: busPIRone 5mg tablet PO SCH (20:00)
[2020-12-20] MEDS: K and/or MAG REPLACEMENT MC SCH (20:18)
[2020-12-20] MEDS: heparin, porcine 5000 units/ml vial SQ SCH (20:28)
[2020-12-20] MEDS: cyclobenzaprine 10mg tablet PO SCH (20:28)
[2020-12-20] MEDS: rifaximin 550mg tablet PO SCH (20:28)
[2020-12-20] MEDS: gabapentin 300mg capsule PO SCH (20:29)
--- NOTE | 2020-12-20 20:33 | NUR ---
pt refused heparin had already scanned but not opened will return
[2020-12-20] MEDS: insulin glargine (Lantus) pen - multi-dose SQ SCH (21:00)
--- NOTE | 2020-12-21 06:30 | NUR ---
Patient in room CAMIL[facility] 349. I have received report from YINA Santana and had the opportunity to ask questions and assume patient care.
[2020-12-21 06:42] LABS: BASOPHILS % (AUTO) 0.5 % (0-1); EOSINOPHILS % (AUTO) 0.3 % (0-6); HEMATOCRIT 28.6 % (35.0-45.0); HEMOGLOBIN 9.6 g/dl (12.0-16.0); LYMPHOCYTES # (AUTO) 0.6 X10'3 (1.1-4.8); LYMPHOCYTES % (AUTO) 11.3 % (21-51); MEAN CORPUSCULAR HEMOGLOBIN 34.4 PG (27.0-31.0); MEAN CORPUSCULAR HGB CONC 33.6 g/dL (33.0-36.5); MEAN CORPUSCULAR VOLUME 102.5 FL (78-98); MEAN PLATELET VOLUME 7.2 FL (7.4-10.4); MONOCYTES # (AUTO) 0.7 X10'3 (0-0.9); MONOCYTES % (AUTO) 12.5 % (2-12); NEUTROPHILS # (AUTO) 4.1 X10'3 (1.8-7.7); NEUTROPHILS % (AUTO) 75.4 % (42-75); PLATELET COUNT 129 X10'3 (140-440); RED BLOOD COUNT 2.79 X10'6 (4.20-5.60); RED CELL DISTRIBUTION WIDTH 15.6 % (11.5-14.5); WHITE BLOOD COUNT 5.5 X10'3 (4.5-11.0)
[2020-12-21 07:00] VITALS: BP 111/69
[2020-12-21 07:02] LABS: GLUCOSE 179 MG/DL (70-104); SODIUM 136 MMOL/L (135-145)
[2020-12-21 07:03] LABS: ALANINE AMINOTRANSFERASE 25 U/L (12-78); ALBUMIN 2.1 G/DL (3.4-5.0); ALBUMIN/GLOBULIN RATIO 0.6 (1.1-1.5); ALKALINE PHOSPHATASE 129 IU/L (46-116); ANION GAP 11 (8-16); ASPARTATE AMINO TRANSFERASE 40 U/L (10-37); BILIRUBIN,TOTAL 0.2 MG/DL (0.1-1.0); BLOOD UREA NITROGEN 16 MG/DL (7-18); BUN/CREATININE RATIO 25.8 (6.6-38.0); CALCIUM 7.8 MG/DL (8.5-10.1); CHLORIDE 106 MMOL/L (99-107); CREATININE 0.62 MG/DL (0.40-0.90); POTASSIUM 3.7 MMOL/L (3.5-5.1); TOTAL CARBON DIOXIDE 19.5 MMOL/L (24-32); TOTAL PROTEIN 5.4 G/DL (6.4-8.2); eGFR > 90 ML/MIN
[2020-12-21 07:04] LABS: MAGNESIUM 1.8 MG/DL (1.5-2.4)
[2020-12-21] MEDS: HYDROcodone/acetaminophen 10/325mg tab PO PRN (07:55)
[2020-12-21] MEDS: gabapentin 300mg capsule PO SCH ×3 (07:59→21:59)
[2020-12-21] MEDS: heparin, porcine 5000 units/ml vial SQ SCH ×2 (07:59→19:46)
[2020-12-21] MEDS: docusate sod 100mg capsule PO SCH (07:59)
[2020-12-21] MEDS: rifaximin 550mg tablet PO SCH ×3 (07:59→21:59)
[2020-12-21] MEDS: cyclobenzaprine 10mg tablet PO SCH ×3 (08:00→21:58)
[2020-12-21] MEDS: busPIRone 5mg tablet PO SCH (08:00)
[2020-12-21] MEDS: MELOXICAM 15MG TABLET PO SCH (08:00)
[2020-12-21] MEDS: LIPASE/PROTEASE/AMYLASE 4,200 unit CAPSULE.DR PO SCH ×3 (08:00→17:15)
[2020-12-21] MEDS: K and/or MAG REPLACEMENT MC SCH ×2 (08:00→20:00)
[2020-12-21] MEDS: levoTHYROXINE 25mcg tablet PO SCH (08:00)
[2020-12-21] MEDS: dextrose 5%-1/2 normal saline 1,000 ML IV SCH ×2 (08:06→17:16)
[2020-12-21 11:00] VITALS: BP 102/65
--- NOTE | 2020-12-21 11:07 | NUR ---
Pt with T2DM with A1c 8.6% 11/13 per EMR. Pt seen by RD at last admit 11/15 for written and verbal DM education and RD contact information. No further education planned at this time. Will continue to follow. Addendum: 12/21/20 at [address] Amended: Links added.
[2020-12-21] MEDS: predniSONE 5mg tablet PO SCH (14:01)
[2020-12-21] MEDS: insulin Lispro (HumaLOG) vial - multi-dose SQ SCH ×2 (14:06→19:50)
[2020-12-21] MEDS: chloestyramine/aspartame 4gm packet PO SCH (16:28)
--- NOTE | 2020-12-21 17:05 | NUR ---
DM consult: Patient's A1c has already been addressed, see below. Pt with T2DM with A1c 8.6% 11/13 per EMR. Pt seen by RD at last admit 11/15 for written and verbal DM education and RD contact information. No further education planned at this time. Will continue to follow. Addendum: 12/21/20 at [address] Amended: Links added.
--- NOTE | 2020-12-21 18:41 | NUR ---
Problems reprioritized. Patient report given, questions answered & plan of care reviewed with YINA Payne.
--- NOTE | 2020-12-21 18:52 | NUR ---
Patient in room [facility] 349. I have received report from ANTONY BRAN and had the opportunity to ask questions and assume patient care.
[2020-12-21] MEDS: busPIRone 15mg tablet PO SCH (19:47)
[2020-12-21] MEDS: insulin glargine (Lantus) pen - multi-dose SQ SCH (22:01)
[2020-12-22] VITALS: BP 101/60
[2020-12-22 00:17] VITALS: BP 111/70
[2020-12-22] MEDS: dextrose 5%-1/2 normal saline 1,000 ML IV SCH ×2 (03:33→16:21)
--- NOTE | 2020-12-22 06:33 | NUR ---
Problems reprioritized. Patient report given, questions answered & plan of care reviewed with ANTONY BRAN.
--- NOTE | 2020-12-22 06:33 | NUR ---
Patient in room CAMILLE 349. I have received report from IYNA Payne and had the opportunity to ask questions and assume patient care.
[2020-12-22 07:00] VITALS: BP 132/70
[2020-12-22] MEDS: rifaximin 550mg tablet PO SCH ×3 (07:44→21:55)
[2020-12-22] MEDS: LIPASE/PROTEASE/AMYLASE 4,200 unit CAPSULE.DR PO SCH ×2 (07:44→17:47)
[2020-12-22] MEDS: gabapentin 300mg capsule PO SCH ×3 (07:44→21:54)
[2020-12-22] MEDS: cyclobenzaprine 10mg tablet PO SCH ×3 (07:44→21:55)
[2020-12-22] MEDS: levoTHYROXINE 25mcg tablet PO SCH (07:44)
[2020-12-22] MEDS: busPIRone 15mg tablet PO SCH ×2 (07:44→19:36)
[2020-12-22] MEDS: predniSONE 5mg tablet PO SCH (07:44)
[2020-12-22 08:00] LABS: BASOPHILS % (AUTO) 0.2 % (0-1); EOSINOPHILS % (AUTO) 0.5 % (0-6); HEMATOCRIT 29.6 % (35.0-45.0); HEMOGLOBIN 9.9 g/dl (12.0-16.0); LYMPHOCYTES # (AUTO) 0.6 X10'3 (1.1-4.8); LYMPHOCYTES % (AUTO) 10.8 % (21-51); MEAN CORPUSCULAR HEMOGLOBIN 34.3 PG (27.0-31.0); MEAN CORPUSCULAR HGB CONC 33.6 g/dL (33.0-36.5); MEAN CORPUSCULAR VOLUME 102.1 FL (78-98); MEAN PLATELET VOLUME 7.7 FL (7.4-10.4); MONOCYTES # (AUTO) 0.7 X10'3 (0-0.9); NEUTROPHILS # (AUTO) 3.8 X10'3 (1.8-7.7); NEUTROPHILS % (AUTO) 74.5 % (42-75); PLATELET COUNT 124 X10'3 (140-440); RED CELL DISTRIBUTION WIDTH 15.4 % (11.5-14.5); WHITE BLOOD COUNT 5.1 X10'3 (4.5-11.0)
[2020-12-22] MEDS: MELOXICAM 15MG TABLET PO SCH (08:00)
[2020-12-22] MEDS: K and/or MAG REPLACEMENT MC SCH ×2 (08:00→20:00)
[2020-12-22] MEDS: heparin, porcine 5000 units/ml vial SQ SCH ×2 (08:00→19:31)
[2020-12-22 08:19] LABS: ALANINE AMINOTRANSFERASE 28 U/L (12-78); ALBUMIN/GLOBULIN RATIO 0.6 (1.1-1.5); ALKALINE PHOSPHATASE 120 IU/L (46-116); ANION GAP 10 (8-16); ASPARTATE AMINO TRANSFERASE 40 U/L (10-37); BILIRUBIN,TOTAL 0.4 MG/DL (0.1-1.0); BLOOD UREA NITROGEN 12 MG/DL (7-18); BUN/CREATININE RATIO 18.8 (6.6-38.0); CHLORIDE 106 MMOL/L (99-107); CREATININE 0.64 MG/DL (0.40-0.90); GLUCOSE 157 MG/DL (70-104); MAGNESIUM 1.8 MG/DL (1.5-2.4); POTASSIUM 3.7 MMOL/L (3.5-5.1); SODIUM 137 MMOL/L (135-145); TOTAL CARBON DIOXIDE 21.1 MMOL/L (24-32); TOTAL PROTEIN 5.5 G/DL (6.4-8.2); eGFR 90 ML/MIN
[2020-12-22] MEDS: insulin Lispro (HumaLOG) vial - multi-dose SQ SCH ×3 (09:15→19:36)
--- NOTE | 2020-12-22 09:18 | NUR ---
F/u: New A1c was obtained this admit, currently 7.7%, down from 8.6% 11/13 per [facility]. Addendum: 12/22/20 at [address] Amended: Links added.
[2020-12-22 12:00] VITALS: BP 100/58
[2020-12-22] MEDS: chloestyramine/aspartame 4gm packet PO SCH ×2 (12:02→16:21)
[2020-12-22] MEDS: LORazepam 0.5 MG tablet PO PRN ×2 (13:11→22:17)
[2020-12-22 18:00] VITALS: BP 120/69
--- NOTE | 2020-12-22 18:54 | NUR ---
Patient in room [facility] 349. I have received report from ANTONY BRAN and had the opportunity to ask questions and assume patient care.
--- NOTE | 2020-12-22 19:11 | NUR ---
Problems reprioritized. Patient report given, questions answered & plan of care reviewed with YINA Payne.
[2020-12-22] MEDS: diphenoxylate/atropine tablet (Lomotil) PO PRN (21:55)
[2020-12-22] MEDS: insulin glargine (Lantus) pen - multi-dose SQ SCH (22:08)
[2020-12-23] VITALS: BP 120/61
[2020-12-23] MEDS: dextrose 5%-1/2 normal saline 1,000 ML IV SCH ×3 (01:49→21:25)
--- NOTE | 2020-12-23 06:21 | NUR ---
Problems reprioritized. Patient report given, questions answered & plan of care reviewed with MARKIE BRAN.
[2020-12-23 07:00] VITALS: BP 112/57
[2020-12-23] MEDS: LORazepam 0.5 MG tablet PO PRN ×3 (07:16→22:23)
[2020-12-23] MEDS: diphenoxylate/atropine tablet (Lomotil) PO PRN (07:29)
[2020-12-23] MEDS: MELOXICAM 15MG TABLET PO SCH (08:00)
[2020-12-23] MEDS: K and/or MAG REPLACEMENT MC SCH ×3 (08:00→20:00)
[2020-12-23] MEDS: rifaximin 550mg tablet PO SCH ×3 (09:29→22:23)
[2020-12-23] MEDS: LIPASE/PROTEASE/AMYLASE 4,200 unit CAPSULE.DR PO SCH ×2 (09:29→17:21)
[2020-12-23] MEDS: busPIRone 15mg tablet PO SCH ×2 (09:29→19:41)
[2020-12-23] MEDS: gabapentin 300mg capsule PO SCH ×3 (09:30→22:23)
[2020-12-23] MEDS: levoTHYROXINE 25mcg tablet PO SCH (09:34)
[2020-12-23] MEDS: heparin, porcine 5000 units/ml vial SQ SCH ×2 (09:38→19:41)
[2020-12-23] MEDS: cyclobenzaprine 10mg tablet PO SCH ×3 (09:47→22:23)
[2020-12-23] MEDS: predniSONE 5mg tablet PO SCH (09:52)
--- NOTE | 2020-12-23 09:57 | NUR ---
Gave 5mg flexeril wasted 5mg in pharm destroyer.
--- NOTE | 2020-12-23 10:00 | NUR ---
Patient blood glucose 94 and ate minimally, will treat at lunch.
[2020-12-23 10:50] LABS: BASOPHILS % (AUTO) 0.3 % (0-1); EOSINOPHILS % (AUTO) 1.2 % (0-6); LYMPHOCYTES # (AUTO) 0.5 X10'3 (1.1-4.8); LYMPHOCYTES % (AUTO) 15.1 % (21-51); MEAN CORPUSCULAR HEMOGLOBIN 33.8 PG (27.0-31.0); MEAN CORPUSCULAR HGB CONC 33.3 g/dL (33.0-36.5); MEAN CORPUSCULAR VOLUME 101.5 FL (78-98); MEAN PLATELET VOLUME 7.5 FL (7.4-10.4); MONOCYTES # (AUTO) 0.5 X10'3 (0-0.9); MONOCYTES % (AUTO) 13.2 % (2-12); NEUTROPHILS # (AUTO) 2.5 X10'3 (1.8-7.7); NEUTROPHILS % (AUTO) 70.2 % (42-75); PLATELET COUNT 125 X10'3 (140-440); RED BLOOD COUNT 2.66 X10'6 (4.20-5.60); RED CELL DISTRIBUTION WIDTH 15.2 % (11.5-14.5); WHITE BLOOD COUNT 3.6 X10'3 (4.5-11.0)
[2020-12-23] MEDS: chloestyramine/aspartame 4gm packet PO SCH ×2 (11:14→16:40)
[2020-12-23 11:32] LABS: ALANINE AMINOTRANSFERASE 27 U/L (12-78); ALBUMIN 1.8 G/DL (3.4-5.0); ALBUMIN/GLOBULIN RATIO 0.5 (1.1-1.5); ALKALINE PHOSPHATASE 106 IU/L (46-116); ANION GAP 10 (8-16); ASPARTATE AMINO TRANSFERASE 35 U/L (10-37); BILIRUBIN,TOTAL 0.2 MG/DL (0.1-1.0); BLOOD UREA NITROGEN 9 MG/DL (7-18); BUN/CREATININE RATIO 13.6 (6.6-38.0); CHLORIDE 107 MMOL/L (99-107); CREATININE 0.66 MG/DL (0.40-0.90); GLUCOSE 182 MG/DL (70-104); MAGNESIUM 1.5 MG/DL (1.5-2.4); POTASSIUM 3.4 MMOL/L (3.5-5.1); SODIUM 138 MMOL/L (135-145); TOTAL CARBON DIOXIDE 21.2 MMOL/L (24-32); TOTAL PROTEIN 5.3 G/DL (6.4-8.2); eGFR 87 ML/MIN
--- NOTE | 2020-12-23 11:53 | NUR ---
PAGER ID: [phone] MESSAGE: [phone] Melissa [address] Dr. would like for you to call him before discharge. Pavel [phone]
--- NOTE | 2020-12-23 12:02 | NUR ---
Hold discharge per Dr. Pérez.
[2020-12-23 12:21] VITALS: BP 116/71
--- NOTE | 2020-12-23 12:30 | NUR ---
PAGER ID: [phone] MESSAGE: Pavel Surg [phone] re: Dada, patient wants to use her own glucometer, would you like me to add an order Okay to use? thanks Pavel
--- NOTE | 2020-12-23 14:00 | NUR ---
Patient IV has gone bad and patient is fighting to have IV placed at this time. Will hold insulin dosing at this time. Patient had d5 running and if treated patient has the potential to drop. Will assess patient BG at 1700
--- NOTE | 2020-12-23 14:34 | NUR ---
PAGER ID: [phone] MESSAGE: Pavel Surg [phone] re:349b Garland, patient is crying after two attempts an IV, is it okay if we get an order to leave out and push oral fluids. Thanks Pavel.
--- NOTE | 2020-12-23 14:36 | NUR ---
Patient too emotional and jumping around when trying to start the IV. Order received, OK to leave IV out.
[2020-12-23] MEDS ORDERED: potassium Cl 40MEQ/1/2NS 520ml 520 ML IV PRN (14:55)
[2020-12-23] MEDS ORDERED: magnesium 4gm in 100ml NS 100 ML IV PRN (14:55)
[2020-12-23] MEDS ORDERED: magnesium Cl slow-release 64mg tablet PO PRN (14:55)
[2020-12-23] MEDS ORDERED: potassium Cl 20 mEq SR tablet PO PRN (14:55)
[2020-12-23] MEDS: potassium Cl 20 mEq SR tablet PO PRN ×2 (15:38→19:41)
[2020-12-23] MEDS: loperamide 2mg capsule PO SCH (16:40)
--- NOTE | 2020-12-23 17:40 | NUR ---
Student documentation: I have reviewed and agree with all interventions, assessments performed and documented by Papo ALMENDAREZ
[2020-12-23 19:40] VITALS: BP 137/77
[2020-12-23] MEDS: insulin Lispro (HumaLOG) vial - multi-dose SQ SCH (19:44)
[2020-12-23] MEDS: insulin glargine (Lantus) pen - multi-dose SQ SCH (22:27)
[2020-12-24] VITALS: BP 125/73
[2020-12-24] MEDS: loperamide 2mg capsule PO SCH ×3 (00:22→16:42)
[2020-12-24] MEDS: potassium Cl 20 mEq SR tablet PO PRN (00:22)
[2020-12-24] MEDS: HYDROcodone/acetaminophen 10/325mg tab PO PRN (05:17)
--- NOTE | 2020-12-24 06:15 | NUR ---
Problems reprioritized. Patient report given, questions answered & plan of care reviewed with YINA CHAPMAN. Addendum: 12/24/20 at 0615 by Rosa Krause RN Amended: Links added.
[2020-12-24 06:47] LABS: BASOPHILS % (AUTO) 0.3 % (0-1); EOSINOPHILS % (AUTO) 1.1 % (0-6); HEMATOCRIT 27.6 % (35.0-45.0); HEMOGLOBIN 9.1 g/dl (12.0-16.0); LYMPHOCYTES # (AUTO) 0.5 X10'3 (1.1-4.8); LYMPHOCYTES % (AUTO) 14.7 % (21-51); MEAN CORPUSCULAR HEMOGLOBIN 33.9 PG (27.0-31.0); MEAN CORPUSCULAR VOLUME 102.6 FL (78-98); MEAN PLATELET VOLUME 7.7 FL (7.4-10.4); MONOCYTES # (AUTO) 0.3 X10'3 (0-0.9); NEUTROPHILS # (AUTO) 2.4 X10'3 (1.8-7.7); NEUTROPHILS % (AUTO) 73.9 % (42-75); PLATELET COUNT 142 X10'3 (140-440); RED BLOOD COUNT 2.69 X10'6 (4.20-5.60); RED CELL DISTRIBUTION WIDTH 15.3 % (11.5-14.5); WHITE BLOOD COUNT 3.2 X10'3 (4.5-11.0)
--- NOTE | 2020-12-24 06:54 | NUR ---
Patient in room CAMILLE 349. I have received report from Melissa BRAN and had the opportunity to ask questions and assume patient care.
[2020-12-24 07:00] VITALS: BP 102/64
[2020-12-24 07:24] LABS: ALANINE AMINOTRANSFERASE 29 U/L (12-78); ALBUMIN 1.9 G/DL (3.4-5.0); ALBUMIN/GLOBULIN RATIO 0.5 (1.1-1.5); ALKALINE PHOSPHATASE 115 IU/L (46-116); ANION GAP 13 (8-16); ASPARTATE AMINO TRANSFERASE 31 U/L (10-37); BILIRUBIN,TOTAL 0.1 MG/DL (0.1-1.0); BLOOD UREA NITROGEN 9 MG/DL (7-18); BUN/CREATININE RATIO 13.8 (6.6-38.0); CHLORIDE 112 MMOL/L (99-107); CREATININE 0.65 MG/DL (0.40-0.90); GLUCOSE 90 MG/DL (70-104); MAGNESIUM 1.9 MG/DL (1.5-2.4); POTASSIUM 4.1 MMOL/L (3.5-5.1); SODIUM 145 MMOL/L (135-145); TOTAL CARBON DIOXIDE 20.2 MMOL/L (24-32); TOTAL PROTEIN 5.5 G/DL (6.4-8.2); eGFR 88 ML/MIN
[2020-12-24 07:46] LABS: CALCIUM 8.5 MG/DL (8.5-10.1)
[2020-12-24 08:00] VITALS: BP 102/64
[2020-12-24] MEDS: K and/or MAG REPLACEMENT MC SCH ×4 (08:00→20:00)
[2020-12-24] MEDS: MELOXICAM 15MG TABLET PO SCH (08:00)
[2020-12-24] MEDS: rifaximin 550mg tablet PO SCH ×3 (09:04→20:49)
[2020-12-24] MEDS: cyclobenzaprine 10mg tablet PO SCH ×3 (09:05→20:47)
[2020-12-24] MEDS: busPIRone 15mg tablet PO SCH ×2 (09:06→20:47)
[2020-12-24] MEDS: gabapentin 300mg capsule PO SCH ×3 (09:07→20:49)
[2020-12-24] MEDS: levoTHYROXINE 25mcg tablet PO SCH (09:08)
[2020-12-24] MEDS: predniSONE 5mg tablet PO SCH (09:08)
[2020-12-24] MEDS: heparin, porcine 5000 units/ml vial SQ SCH ×2 (09:10→20:48)
[2020-12-24] MEDS: LIPASE/PROTEASE/AMYLASE 4,200 unit CAPSULE.DR PO SCH ×3 (09:12→17:31)
[2020-12-24] MEDS: insulin Lispro (HumaLOG) vial - multi-dose SQ SCH (09:43)
[2020-12-24] MEDS ORDERED: LIPA1CAP28 PO (09:44)
[2020-12-24] MEDS ORDERED: gabapentin capsule PO (09:44)
[2020-12-24] MEDS ORDERED: LOPE2CAP PO (09:44)
[2020-12-24] MEDS ORDERED: QUELT PO (09:44)
[2020-12-24 11:00] VITALS: BP 106/64
[2020-12-24] MEDS: chloestyramine/aspartame 4gm packet PO SCH ×2 (11:51→16:41)
[2020-12-24] MEDS: dextrose ORAL solution 15 GM/59 ML bottle PO PRN ×2 (12:28→12:52)
--- NOTE | 2020-12-24 13:24 | NUR ---
Patient tested at 64 for blood glucose at 1210. Patient was given 15 mg dextrose and rechecked in 15 min, at this time blood glucose was 62. Patient was given another 15mg dextrose and rechecked in 15 minutes, blood glucose was then at 85. Addendum: 12/24/20 at 1328 by Papo WRIGHT Amended: Links added.
--- NOTE | 2020-12-24 15:03 | NUR ---
PAGER ID: [phone] MESSAGE: Pavel Surg [phone] Re: 349b Garland Patient is refusing to discharge as well as her daughter until Dr. Pérez is shows up or talks to them
--- NOTE | 2020-12-24 15:26 | NUR ---
PAGER ID: [phone] MESSAGE: Pavel Surg [phone] Re: 349b Garland, Patient Dr. Serrano wants you to call him and hold her discharge, because since I have been trying to discharge her she has had 7 more BM's
--- NOTE | 2020-12-24 15:30 | NUR ---
patient sleeping Addendum: 12/24/20 at 1531 by Papo WRIGHT Amended: Links added.
[2020-12-24] MEDS: LORazepam 0.5 MG tablet PO PRN ×2 (16:38→21:10)
--- NOTE | 2020-12-24 17:35 | NUR ---
patient sitting at side of bed Addendum: 12/24/20 at 1735 by Papo WRIGHT Amended: Links added.
[2020-12-24 18:35] VITALS: BP 121/72
--- NOTE | 2020-12-24 18:54 | NUR ---
Student documentation: I have reviewed and agree with all interventions, assessments performed and documented by Papo SHAW.
--- NOTE | 2020-12-24 18:56 | NUR ---
Problems reprioritized. Patient report given, questions answered & plan of care reviewed with Gayle BRAN.
--- NOTE | 2020-12-24 19:12 | NUR ---
Patient in room CAMILLE 349. I have received report from Pavel BRAN and had the opportunity to ask questions and assume patient care.
[2020-12-24] MEDS: insulin glargine (Lantus) pen - multi-dose SQ SCH (21:00)
[2020-12-24] MEDS: diphenoxylate/atropine tablet (Lomotil) PO PRN (21:11)
[2020-12-25 00:24] VITALS: BP 112/64
[2020-12-25] MEDS: LORazepam 0.5 MG tablet PO PRN ×2 (05:58→19:36)
[2020-12-25] MEDS: diphenoxylate/atropine tablet (Lomotil) PO PRN (05:58)
[2020-12-25] MEDS: HYDROcodone/acetaminophen 10/325mg tab PO PRN (05:58)
--- NOTE | 2020-12-25 06:26 | NUR ---
Patient in room CAMILLE 349. I have received report from Suzanne and had the opportunity to ask questions and assume patient care.
--- NOTE | 2020-12-25 06:40 | NUR ---
Problems reprioritized. Patient report given, questions answered & plan of care reviewed with Suzanne BRAN.
[2020-12-25 07:01] LABS: BASOPHILS % (AUTO) 0.3 % (0-1); EOSINOPHILS % (AUTO) 0.8 % (0-6); HEMOGLOBIN 9.1 g/dl (12.0-16.0); LYMPHOCYTES # (AUTO) 0.7 X10'3 (1.1-4.8); LYMPHOCYTES % (AUTO) 19.8 % (21-51); MEAN CORPUSCULAR HEMOGLOBIN 33.8 PG (27.0-31.0); MEAN CORPUSCULAR HGB CONC 32.7 g/dL (33.0-36.5); MEAN CORPUSCULAR VOLUME 103.4 FL (78-98); MEAN PLATELET VOLUME 7.7 FL (7.4-10.4); MONOCYTES # (AUTO) 0.4 X10'3 (0-0.9); MONOCYTES % (AUTO) 12.2 % (2-12); NEUTROPHILS # (AUTO) 2.3 X10'3 (1.8-7.7); NEUTROPHILS % (AUTO) 66.9 % (42-75); PLATELET COUNT 137 X10'3 (140-440); RED BLOOD COUNT 2.71 X10'6 (4.20-5.60); RED CELL DISTRIBUTION WIDTH 15.6 % (11.5-14.5); WHITE BLOOD COUNT 3.4 X10'3 (4.5-11.0)
[2020-12-25 07:08] LABS: ALANINE AMINOTRANSFERASE 31 U/L (12-78); ALBUMIN/GLOBULIN RATIO 0.5 (1.1-1.5); ALKALINE PHOSPHATASE 129 IU/L (46-116); ANION GAP 12 (8-16); ASPARTATE AMINO TRANSFERASE 33 U/L (10-37); BILIRUBIN,TOTAL 0.1 MG/DL (0.1-1.0); BLOOD UREA NITROGEN 15 MG/DL (7-18); BUN/CREATININE RATIO 22.1 (6.6-38.0); CALCIUM 8.4 MG/DL (8.5-10.1); CHLORIDE 109 MMOL/L (99-107); CREATININE 0.68 MG/DL (0.40-0.90); GLUCOSE 111 MG/DL (70-104); MAGNESIUM 1.7 MG/DL (1.5-2.4); POTASSIUM 4.3 MMOL/L (3.5-5.1); SODIUM 142 MMOL/L (135-145); TOTAL CARBON DIOXIDE 20.7 MMOL/L (24-32); TOTAL PROTEIN 5.7 G/DL (6.4-8.2); eGFR 84 ML/MIN
--- NOTE | 2020-12-25 07:12 | NUR ---
Patient in room CAMILLE 349. I have received report from Loco BRAN and had the opportunity to ask questions and assume patient care. sleeping on back eye mask on
[2020-12-25] MEDS: MELOXICAM 15MG TABLET PO SCH (08:00)
[2020-12-25] MEDS: K and/or MAG REPLACEMENT MC SCH ×2 (08:00→19:37)
[2020-12-25] MEDS: LIPASE/PROTEASE/AMYLASE 4,200 unit CAPSULE.DR PO SCH ×3 (08:27→16:40)
[2020-12-25] MEDS: busPIRone 15mg tablet PO SCH ×2 (08:30→19:36)
[2020-12-25] MEDS: cyclobenzaprine 10mg tablet PO SCH ×3 (08:34→22:42)
[2020-12-25] MEDS: loperamide 2mg capsule PO SCH ×2 (08:35)
[2020-12-25] MEDS: gabapentin 300mg capsule PO SCH ×3 (08:36→22:38)
[2020-12-25] MEDS: predniSONE 5mg tablet PO SCH (08:37)
[2020-12-25] MEDS: levoTHYROXINE 25mcg tablet PO SCH (08:38)
[2020-12-25] MEDS: rifaximin 550mg tablet PO SCH ×2 (08:39→13:06)
[2020-12-25] MEDS: heparin, porcine 5000 units/ml vial SQ SCH ×2 (08:42→19:37)
[2020-12-25 08:49] VITALS: BP 105/63
[2020-12-25 09:44] VITALS: BP 114/67
[2020-12-25 11:00] VITALS: BP 120/67
[2020-12-25] MEDS: chloestyramine/aspartame 4gm packet PO SCH ×2 (11:23→16:00)
--- NOTE | 2020-12-25 11:25 | NUR ---
Student Medication Administration:For this medication-pass time frame [id number], all medication were reviewed,administered and documented per hospital policy by Elvira Vides.
--- NOTE | 2020-12-25 12:29 | NUR ---
Patient in room CAMILLE 349. I have received report from and had the opportunity to ask questions and assume patient care.
--- NOTE | 2020-12-25 15:22 | NUR ---
PAGER ID: [phone] MESSAGE: Suzanne Surg [phone] Re: Dada patients home medication Meloxicam has not been brought in by family can I dc pharmacy request
--- NOTE | 2020-12-25 15:56 | NUR ---
Initial: Pt admit DX severe diarrhea, anxiety, anemia of chronic disease, and hx diarrhea 3 weeks PLANNER INTERN. Pt hx pancreatic CA now spread to lungs, whipple procedure, and diarrhea r/t current chemotherapy per EMR. PO ~75-100% avg current carb controlled receiving pancreatic enzymes w/ meals meeting needs. MCV 103.4 this admit; RD d/w RN regarding folic acid and MVI supplementation if MD agreeable given chemo/whipple procedure hx. LBM 12/25 receiving routine imodium, PRN lomotil 12/25, and prevalite started yesterday pending physical science professor input per EMR. Pt did have low Glu yesterday w/ sufficient PO intake; likely r/t receiving Lantus 10 PM for AM Glu of 94. Will continue to monitor. Rec: 1. continue carb controlled diet 2. folic acid, MVI supplementation IF MD agreeable given Whipple/chemo hx PLANNER INTERN w/ MCV 103.4 this admit 3. routine anti-diarrheal per MD r/t diarrhea 4. weekly wts Addendum: 12/25/20 at [address] Amended: Links added.
[2020-12-25] MEDS ORDERED: metroNIDAZOLE 500mg tablet PO SCH (16:05)
[2020-12-25] MEDS: normal saline 1000ml 1,000 ML IV SCH (16:08)
[2020-12-25] MEDS ORDERED: PEG 3350/Na sulf,bicarb,Cl/KCl oral sol 4 liter bottle PO ONE (17:00)
--- NOTE | 2020-12-25 17:04 | NUR ---
acting as clinical instructor, i reviewed student nurse charting
--- NOTE | 2020-12-25 17:43 | NUR ---
Gave report to YINA Palacios
--- NOTE | 2020-12-25 18:31 | NUR ---
Problems reprioritized. Patient report given, questions answered & plan of care reviewed with Loco BRAN.
[2020-12-25 20:11] VITALS: BP 122/69
[2020-12-25] MEDS: insulin glargine (Lantus) pen - multi-dose SQ SCH (21:00)
[2020-12-26] VITALS (9 sets, daily range): BP systolic 111–141; BP diastolic 63–80
[2020-12-26] MEDS: normal saline 1000ml 1,000 ML IV SCH ×4 (00:46→23:06)
[2020-12-26] MEDS: LORazepam 0.5 MG tablet PO PRN ×2 (01:31→17:45)
[2020-12-26] MEDS: MELOXICAM 15MG TABLET PO SCH (06:47)
[2020-12-26] MEDS: LIPASE/PROTEASE/AMYLASE 4,200 unit CAPSULE.DR PO SCH ×3 (06:47→17:33)
[2020-12-26] MEDS: chloestyramine/aspartame 4gm packet PO SCH ×2 (06:48→17:33)
[2020-12-26] MEDS: heparin, porcine 5000 units/ml vial SQ SCH ×2 (06:48→20:19)
--- NOTE | 2020-12-26 06:53 | NUR ---
Problems reprioritized. Patient report given, questions answered & plan of care reviewed with Suzanne BRAN.
[2020-12-26 07:08] LABS: MAGNESIUM 1.7 MG/DL (1.5-2.4); POTASSIUM 3.7 MMOL/L (3.5-5.1)
[2020-12-26] MEDS: K and/or MAG REPLACEMENT MC SCH ×2 (08:00→20:00)
[2020-12-26] MEDS: busPIRone 15mg tablet PO SCH ×2 (08:24→20:20)
[2020-12-26] MEDS: gabapentin 300mg capsule PO SCH ×3 (08:24→20:20)
[2020-12-26] MEDS: levoTHYROXINE 25mcg tablet PO SCH (08:26)
[2020-12-26] MEDS: predniSONE 5mg tablet PO SCH (08:26)
[2020-12-26 09:09] LABS: LYMPHOCYTES # (AUTO) 0.6 X10'3 (1.1-4.8); MONOCYTES # (AUTO) 0.3 X10'3 (0-0.9); NEUTROPHILS % (AUTO) 65.2 % (42-75)
[2020-12-26 09:11] LABS: BASOPHILS % (AUTO) 0.3 % (0-1); EOSINOPHILS % (AUTO) 0.8 % (0-6); HEMATOCRIT 27.1 % (35.0-45.0); HEMOGLOBIN 8.9 g/dl (12.0-16.0); LYMPHOCYTES % (AUTO) 21.9 % (21-51); MEAN CORPUSCULAR HEMOGLOBIN 33.6 PG (27.0-31.0); MEAN PLATELET VOLUME 7.5 FL (7.4-10.4); MONOCYTES % (AUTO) 11.8 % (2-12); NEUTROPHILS # (AUTO) 1.7 X10'3 (1.8-7.7); PLATELET COUNT 135 X10'3 (140-440); RED BLOOD COUNT 2.65 X10'6 (4.20-5.60); RED CELL DISTRIBUTION WIDTH 15.4 % (11.5-14.5); WHITE BLOOD COUNT 2.7 X10'3 (4.5-11.0)
[2020-12-26 09:17] LABS: ALBUMIN 1.9 G/DL (3.4-5.0); ANION GAP 6 (8-16); BLOOD UREA NITROGEN 11 MG/DL (7-18); BUN/CREATININE RATIO 17.7 (6.6-38.0); CALCIUM 8.1 MG/DL (8.5-10.1); CHLORIDE 110 MMOL/L (99-107); CREATININE 0.62 MG/DL (0.40-0.90); GLUCOSE 91 MG/DL (70-104); POTASSIUM 3.7 MMOL/L (3.5-5.1); SODIUM 142 MMOL/L (135-145); TOTAL CARBON DIOXIDE 26.2 MMOL/L (24-32); eGFR > 90 ML/MIN
[2020-12-26 09:47] LABS: PLATELET ESTIMATE DECREASED; TOTAL CELLS COUNTED 100
[2020-12-26] MEDS ORDERED: MIDAZolam 1 MG/ML 5ML VIAL ONE (10:09)
[2020-12-26] MEDS ORDERED: fentaNYL/PF 50MCG/1 ML 2ML syringe ONE (10:09)
[2020-12-26] MEDS ORDERED: LIDOcaine Viscous 15ml cup ONE (10:10)
--- NOTE | 2020-12-26 12:11 | NUR ---
Received patient report from Kalli in GI lab via phone patient on way to floor. Will assume patient care when patient comes to the floor
[2020-12-26] MEDS ORDERED: amox tr/potassium clavulanate 875/125mg TAB PO ONE (12:20)
--- NOTE | 2020-12-26 13:10 | NUR ---
GAG REFLEX CHECKED WITH TONGUE DEPRESSOR Addendum: 12/26/20 at 1436 by Ann Marie Salmeron - Student KYLE Positive Gag, reflex
--- NOTE | 2020-12-26 14:35 | NUR ---
PAGER ID: [phone] MESSAGE: Suzanne-Surg [phone] Re: Dada HoltB : Dr Pérez would like patient to stay until new medications have taken effect and patients diarrhea has decreased. Patient wants to stay
[2020-12-26] MEDS: pantoprazole 40mg Tablet.DR PO SCH (14:43)
[2020-12-26] MEDS: cyclobenzaprine 10mg tablet PO SCH ×2 (14:44→20:19)
[2020-12-26] MEDS: amox tr/potassium clavulanate 875/125mg TAB PO SCH (17:30)
--- NOTE | 2020-12-26 18:24 | NUR ---
Problems reprioritized. Patient report given, questions answered & plan of care reviewed with Loco BRAN.
--- NOTE | 2020-12-26 18:43 | NUR ---
Patient in room [facility] 349. I have received report from Suzanne BRAN and had the opportunity to ask questions and assume patient care.
[2020-12-26] MEDS: temazepam 15mg capsule PO PRN ×2 (20:20→21:16)
[2020-12-26] MEDS ORDERED: psyllium seed 3.4 gm packet PO SCH (21:00)
[2020-12-26] MEDS: insulin glargine (Lantus) pen - multi-dose SQ SCH (21:00)
[2020-12-27] VITALS: BP 130/80
--- NOTE | 2020-12-27 06:43 | NUR ---
Problems reprioritized. Patient report given, questions answered & plan of care reviewed with Soni BRAN.
[2020-12-27 07:00] VITALS: BP 132/63
[2020-12-27 07:20] LABS: ALBUMIN 1.7 G/DL (3.4-5.0); ANION GAP 10 (8-16); BLOOD UREA NITROGEN 8 MG/DL (7-18); BUN/CREATININE RATIO 12.7 (6.6-38.0); CALCIUM 7.6 MG/DL (8.5-10.1); CHLORIDE 110 MMOL/L (99-107); CREATININE 0.63 MG/DL (0.40-0.90); GLUCOSE 145 MG/DL (70-104); MAGNESIUM 1.6 MG/DL (1.5-2.4); POTASSIUM 3.8 MMOL/L (3.5-5.1); SODIUM 142 MMOL/L (135-145); TOTAL CARBON DIOXIDE 21.7 MMOL/L (24-32); eGFR > 90 ML/MIN
[2020-12-27] MEDS: K and/or MAG REPLACEMENT MC SCH (08:00)
[2020-12-27] MEDS: heparin, porcine 5000 units/ml vial SQ SCH (08:00)
[2020-12-27] MEDS: LIPASE/PROTEASE/AMYLASE 4,200 unit CAPSULE.DR PO SCH ×2 (09:16→13:13)
[2020-12-27] MEDS: predniSONE 5mg tablet PO SCH (09:17)
[2020-12-27] MEDS: busPIRone 15mg tablet PO SCH (09:17)
[2020-12-27] MEDS: cyclobenzaprine 10mg tablet PO SCH ×2 (09:18→13:12)
[2020-12-27] MEDS: loperamide 2mg capsule PO SCH (09:18)
[2020-12-27] MEDS: amox tr/potassium clavulanate 875/125mg TAB PO SCH (09:18)
[2020-12-27] MEDS: pantoprazole 40mg Tablet.DR PO SCH (09:18)
[2020-12-27] MEDS: levoTHYROXINE 25mcg tablet PO SCH (09:19)
[2020-12-27] MEDS: gabapentin 300mg capsule PO SCH ×2 (09:19→13:10)
[2020-12-27 09:33] LABS: BASOPHILS % (AUTO) 0.4 % (0-1); EOSINOPHILS % (AUTO) 0.9 % (0-6); HEMATOCRIT 27.3 % (35.0-45.0); HEMOGLOBIN 9.1 g/dl (12.0-16.0); LYMPHOCYTES # (AUTO) 0.5 X10'3 (1.1-4.8); LYMPHOCYTES % (AUTO) 17.2 % (21-51); MEAN CORPUSCULAR HEMOGLOBIN 33.8 PG (27.0-31.0); MEAN CORPUSCULAR HGB CONC 33.4 g/dL (33.0-36.5); MEAN CORPUSCULAR VOLUME 101.1 FL (78-98); MEAN PLATELET VOLUME 7.6 FL (7.4-10.4); MONOCYTES # (AUTO) 0.3 X10'3 (0-0.9); MONOCYTES % (AUTO) 10.7 % (2-12); NEUTROPHILS # (AUTO) 1.9 X10'3 (1.8-7.7); NEUTROPHILS % (AUTO) 70.8 % (42-75); PLATELET COUNT 145 X10'3 (140-440); RED CELL DISTRIBUTION WIDTH 15.7 % (11.5-14.5); WHITE BLOOD COUNT 2.7 X10'3 (4.5-11.0)
[2020-12-27 10:10] LABS: PLATELET ESTIMATE NORMAL; TOTAL CELLS COUNTED 100
--- NOTE | 2020-12-27 10:32 | NUR ---
Dr. Khan seen this patient. Per Dr. Khan patient is okay to go home from his standpoint.
[2020-12-27] MEDS: HYDROcodone/acetaminophen 10/325mg tab PO PRN (10:45)
[2020-12-27] MEDS: chloestyramine/aspartame 4gm packet PO SCH (10:55)
[2020-12-27 11:00] VITALS: BP 153/84
--- NOTE | 2020-12-27 11:02 | NUR ---
Student documentation: I have reviewed and agree with all interventions, assessments performed and documented by SN Flor from [facility] .
[2020-12-27] MEDS ORDERED: PSYL0.5210 PO (11:42)
[2020-12-27] MEDS ORDERED: AMOX-422 PO (11:42)
--- NOTE | 2020-12-27 12:59 | NUR ---
Discharge instructions given to patient with the present of and daughter at bedside. Patient and family verbalized understanding of all instructions made. Peripheral IV catheter was removed by student nurse Chary from [facility]. Instructed patient to ensure she has all her belongings with her before leaving the hospital.
[2020-12-27] MEDS ORDERED: PANT-47 PO (14:23)
--- NOTE | 2020-12-27 15:45 | NUR ---
Paged Dr. Nagy PAGER ID: [phone] MESSAGE: Surgical Sofhia ext [phone]. RE: Aissatou Garland. Pt discharged today. [facility] did not filled Rx for Pancreaze because it needs pre-authorization and her insurance does not cover this.
== END 2020-12-27 13:00 | disposition home or self-care (01) | DRG 638 ==
LOC: ER 07:19 → ED HOLD 13:28 → SUR 3N 17:45
PROVIDERS: ADMIT Family Medicine; ATTEND Family Medicine
PROC: BW211ZZ Computerized Tomography (CT Scan) of Abdomen and Pelvis using Low Osmolar Contrast (ICD-10-PCS; 2020-12-20)
PROC: 0DBA8ZX Excision of Jejunum, Via Natural or Artificial Opening Endoscopic, Diagnostic (ICD-10-PCS; principal; 2020-12-26)
PROC: 0DB68ZX Excision of Stomach, Via Natural or Artificial Opening Endoscopic, Diagnostic (ICD-10-PCS; 2020-12-26)
PROC: 0DBN8ZX Excision of Sigmoid Colon, Via Natural or Artificial Opening Endoscopic, Diagnostic (ICD-10-PCS; 2020-12-26)
PROC: 0DBE8ZX Excision of Large Intestine, Via Natural or Artificial Opening Endoscopic, Diagnostic (ICD-10-PCS; 2020-12-26)
DX: E11.649 Type 2 diabetes mellitus with hypoglycemia without coma (principal); E87.1 Hypo-osmolality and hyponatremia; C78.00 Secondary malignant neoplasm of unspecified lung; K52.9 Noninfective gastroenteritis and colitis, unspecified; D63.8 Anemia in other chronic diseases classified elsewhere; E03.9 Hypothyroidism, unspecified; E11.42 Type 2 diabetes mellitus with diabetic polyneuropathy; E78.5 Hyperlipidemia, unspecified; Z96.643 Presence of artificial hip joint, bilateral; Z96.653 Presence of artificial knee joint, bilateral; K21.9 Gastro-esophageal reflux disease without esophagitis; M19.90 Unspecified osteoarthritis, unspecified site; E86.0 Dehydration; F41.1 Generalized anxiety disorder; I10 Essential (primary) hypertension; Z20.822 Contact with and (suspected) exposure to COVID-19; K28.9 Gastrojejunal ulcer, unspecified as acute or chronic, without hemorrhage or perforation; K29.70 Gastritis, unspecified, without bleeding; R62.7 Adult failure to thrive; Z79.899 Other long term (current) drug therapy; Z85.05 Personal history of malignant neoplasm of liver; Z87.442 Personal history of urinary calculi; Z85.07 Personal history of malignant neoplasm of pancreas; Z90.411 Acquired partial absence of pancreas; Z90.49 Acquired absence of other specified parts of digestive tract; Z68.22 Body mass index [BMI] 22.0-22.9, adult
CPT/HCPCS: 36415; 36600; 43239; 45380; 71045; 74177; 80048; 80053; 80076; 82803; 82948; 83036; 83605; 83690; 83735; 84100; 84132; 84443; 85007; 85018; 85025; 87045; 87046; 87324; 87449; 87635; 88305; 89055; 96374; 97110; 97116; 97161; 97530; 97535; 99152; 99153; 99285; A4620; C9803; G0378; J1644; J1815; J2060; J2250; J2405; J3010; J3490; J7030; J7040; J7512; Q9967

== ENCOUNTER 2021-01-09 20:45 | Inpatient (IN) | payer MEDICARE ==
[~2021-01-09] VITALS: Ht 152.4 cm; Wt 54.5 kg
[~2021-01-09 20:45] MED LIST changes: +AMOX-422 PO; +DIPH-522 PO; -GABA600T13 PO; -HYDR-3686 PO; -HYDR25TA4 PO; +LIPA1CAP28 PO; +LOPE2CAP PO; -OXYC-145 PO; +OXYC1TAB17 PO; +PANT-47 PO; +PSYL0.5210 PO; +QUELT PO; +gabapentin capsule PO
[2021-01-09] MEDS ORDERED: normal saline 1000ML IV soln IV ONE (21:00)
[2021-01-09 21:35] LABS: BASOPHILS % (AUTO) 0.5 % (0-1); EOSINOPHILS % (AUTO) 0.2 % (0-6); HEMATOCRIT 32.7 % (35.0-45.0); HEMOGLOBIN 10.9 g/dl (12.0-16.0); LYMPHOCYTES # (AUTO) 1.1 X10'3 (1.1-4.8); LYMPHOCYTES % (AUTO) 19.7 % (21-51); MEAN CORPUSCULAR HEMOGLOBIN 33.4 PG (27.0-31.0); MEAN CORPUSCULAR HGB CONC 33.3 g/dL (33.0-36.5); MEAN CORPUSCULAR VOLUME 100.3 FL (78-98); MEAN PLATELET VOLUME 7.5 FL (7.4-10.4); MONOCYTES # (AUTO) 1.1 X10'3 (0-0.9); MONOCYTES % (AUTO) 19.9 % (2-12); NEUTROPHILS # (AUTO) 3.2 X10'3 (1.8-7.7); NEUTROPHILS % (AUTO) 59.7 % (42-75); PLATELET COUNT 213 X10'3 (140-440); RED BLOOD COUNT 3.26 X10'6 (4.20-5.60); RED CELL DISTRIBUTION WIDTH 16.3 % (11.5-14.5); WHITE BLOOD COUNT 5.4 X10'3 (4.5-11.0)
[2021-01-09 21:49] LABS: ALANINE AMINOTRANSFERASE 20 U/L (12-78); ALBUMIN 2.5 G/DL (3.4-5.0); ALBUMIN/GLOBULIN RATIO 0.6 (1.1-1.5); ALKALINE PHOSPHATASE 219 IU/L (46-116); ANION GAP 9 (8-16); ASPARTATE AMINO TRANSFERASE 40 U/L (10-37); BILIRUBIN,TOTAL 0.3 MG/DL (0.1-1.0); BLOOD UREA NITROGEN 12 MG/DL (7-18); BUN/CREATININE RATIO 16.4 (6.6-38.0); CALCIUM 7.8 MG/DL (8.5-10.1); CHLORIDE 102 MMOL/L (99-107); CREATININE 0.73 MG/DL (0.40-0.90); GLUCOSE 123 MG/DL (70-104); POTASSIUM 3.6 MMOL/L (3.5-5.1); SODIUM 135 MMOL/L (135-145); TOTAL CARBON DIOXIDE 23.6 MMOL/L (24-32); TOTAL PROTEIN 6.5 G/DL (6.4-8.2); eGFR 77 ML/MIN
[2021-01-09 21:51] LABS: LACTIC SEPSIS 0.9 MMOL/L (0.4-2.0)
[2021-01-09 21:57] LABS: ETHANOL < 0.010 GM/DL (0.0-0.010)
[2021-01-09 22:01] LABS: TOTAL CELLS COUNTED 100
[2021-01-09 22:02] LABS: ANISOCYTOSIS 1+; PLATELET ESTIMATE NORMAL
[2021-01-09] MEDS ORDERED: levoTHYROXINE sod inj. 100mcg/5 ml vial IV STA (22:43)
[2021-01-09] MEDS ORDERED: HYDROcodone/acetaminophen 5mg/325mg tablet PO PRN (23:20)
[2021-01-09] MEDS ORDERED: ondansetron/PF 4mg/2ml inj IV PRN (23:20)
[2021-01-09] MEDS: normal saline 1000ml 1,000 ML IV SCH (23:20)
[2021-01-09] MEDS ORDERED: HYDROmorphone inj. 0.5 MG/0.5 ML DISP.SYRIN IV PRN (23:20)
[2021-01-09] MEDS ORDERED: diphenhydrAMINE 25mg capsule PO PRN (23:20)
[2021-01-09] MEDS ORDERED: mag hydrox/Alum hydrox/simeth 30ml oral suspension PO PRN (23:20)
[2021-01-09] MEDS ORDERED: acetaminophen 650mg rectal suppository RC PRN (23:20)
[2021-01-09] MEDS ORDERED: acetaminophen 325mg tablet PO PRN (23:20)
[2021-01-09] MEDS ORDERED: bisacodyl 10mg suppository rectal RC PRN (23:20)
[2021-01-09] MEDS ORDERED: diphenhydrAMINE 50 mg/ml inj IV PRN (23:20)
[2021-01-09] MEDS ORDERED: morphine 2 MG/ML inj. syringe IV PRN ×2 (23:20)
[2021-01-09] MEDS ORDERED: ondansetron 4mg rapidly disintigrating tab PO PRN (23:20)
[2021-01-09] MEDS ORDERED: magnesium hydroxide 30ml (MOM) UD suspension PO PRN (23:20)
[2021-01-09] MEDS ORDERED: dextrose 50%-water 50ml dispensing syringe IV PRN ×2 (23:25)
[2021-01-09] MEDS ORDERED: MESSAGE TO PHARMACY PO ONE (23:25)
[2021-01-09] MEDS ORDERED: glucagon, human recombinant 1mg kit SUBCUT PRN (23:25)
[2021-01-09] MEDS ORDERED: insulin Lispro (HumaLOG) vial - multi-dose SQ SCH (23:25)
[2021-01-09] MEDS ORDERED: dextrose ORAL solution 15 GM/59 ML bottle PO PRN ×2 (23:25)
--- NOTE | 2021-01-09 23:55 | NUR ---
Pt already took one dose of her levethroxine (100mg) earlier today. Will hold for now.
[2021-01-09 23:56] LABS: CREATINE KINASE 44 U/L (26-192); MAGNESIUM 1.6 MG/DL (1.5-2.4); PHOSPHORUS 2.3 MG/DL (2.3-4.5); TROPONIN I 0.06 NG/ML (0.0-0.05)
[2021-01-10 00:07] LABS: UA COLLECTION TYPE NON-SPECIFIED
[2021-01-10 00:08] LABS: CLARITY,URINE SLIGHTLY CLOUDY (Clear); COLOR,URINE YELLOW (Yellow); GLUCOSE, URINE NEGATIVE (Neg); KETONES,URINE TRACE mg/dl (Neg); LEUKOCYTE ESTERASE ,URINE NEGATIVE (Neg); NITRITES, URINE POSITIVE (Neg); OCCULT BLOOD,URINE NEGATIVE (Neg); UROBILINOGEN,URINE 0.2 E.U/dL (0.2-1.0)
[2021-01-10 00:10] LABS: PARTIAL THROMBOPLASTIN TIME 31 SECONDS (22-32)
[2021-01-10 00:10] LABS: BACTERIA,URINE 3+ /HPF (Neg)
[2021-01-10 00:11] LABS: HYALINE CASTS 0-3 /LPF (NEGATIVE); MUCUS STRANDS MODERATE /LPF (Neg); SQUAMOUS EPITHELIAL CELL,UR FEW /LPF (FEW); STARCH,URINE MODERATE /HPF (NEGATIVE)
[2021-01-10] MEDS ORDERED: pantoprazole 40MG/NS 100ML BAG 100 ML IV SCH (01:00)
[2021-01-10 03:55] LABS: BASOPHILS % (AUTO) 0.5 % (0-1); EOSINOPHILS % (AUTO) 0.2 % (0-6); HEMATOCRIT 33.8 % (35.0-45.0); HEMOGLOBIN 10.8 g/dl (12.0-16.0); LYMPHOCYTES # (AUTO) 1.1 X10'3 (1.1-4.8); MEAN CORPUSCULAR HEMOGLOBIN 33.5 PG (27.0-31.0); MEAN PLATELET VOLUME 7.6 FL (7.4-10.4); MONOCYTES # (AUTO) 1.1 X10'3 (0-0.9); MONOCYTES % (AUTO) 23.7 % (2-12); NEUTROPHILS # (AUTO) 2.3 X10'3 (1.8-7.7); NEUTROPHILS % (AUTO) 51.6 % (42-75); PLATELET COUNT 175 X10'3 (140-440); RED BLOOD COUNT 3.22 X10'6 (4.20-5.60); RED CELL DISTRIBUTION WIDTH 16.9 % (11.5-14.5); WHITE BLOOD COUNT 4.5 X10'3 (4.5-11.0)
[2021-01-10 04:13] LABS: ALANINE AMINOTRANSFERASE 17 U/L (12-78); ALBUMIN/GLOBULIN RATIO 0.5 (1.1-1.5); ALKALINE PHOSPHATASE 159 IU/L (46-116); ANION GAP 10 (8-16); ASPARTATE AMINO TRANSFERASE 35 U/L (10-37); BILIRUBIN,TOTAL 0.2 MG/DL (0.1-1.0); BLOOD UREA NITROGEN 12 MG/DL (7-18); BUN/CREATININE RATIO 16.9 (6.6-38.0); CALCIUM 7.6 MG/DL (8.5-10.1); CHLORIDE 108 MMOL/L (99-107); CHOL/HDL RATIO 1.8 (0.00-4.99); CHOLESTEROL 68 MG/DL (0-200); CREATININE 0.71 MG/DL (0.40-0.90); GLUCOSE 107 MG/DL (70-104); HDL CHOLESTEROL 37 MG/DL (35-60); LDL CHOLESTEROL 17 MG/DL (50-100); POTASSIUM 3.2 MMOL/L (3.5-5.1); SODIUM 137 MMOL/L (135-145); TOTAL CARBON DIOXIDE 19.5 MMOL/L (24-32); TOTAL PROTEIN 5.7 G/DL (6.4-8.2); TRIGLYCERIDES 61 MG/DL (20-135); eGFR 80 ML/MIN
[2021-01-10 04:55] LABS: ANISOCYTOSIS 1+; PLATELET ESTIMATE NORMAL; TOTAL CELLS COUNTED 100
[2021-01-10 04:57] LABS: POLYCHROMASIA FEW
--- NOTE | 2021-01-10 07:23 | NUR ---
Hygiene provided for BM X1 loose, patient repositioned for comfort, call light within reach, all safety measures in place.
[2021-01-10] MEDS ORDERED: levoTHYROXINE sod inj. 100mcg/5 ml vial IV SCH (08:00)
[2021-01-10] MEDS: docusate sod 100mg capsule PO SCH ×2 (08:00→20:00)
[2021-01-10] MEDS ORDERED: CefTRIAXone/D5W-Rocephin 1gm 50 ML IV SCH ×2 (08:00)
[2021-01-10] MEDS ORDERED: potassium Cl 40MEQ/1/2NS 520ml 520 ML IV PRN (08:40)
[2021-01-10] MEDS ORDERED: magnesium Cl slow-release 64mg tablet PO PRN (08:40)
[2021-01-10] MEDS ORDERED: potassium Cl 20 mEq SR tablet PO PRN (08:40)
[2021-01-10] MEDS ORDERED: magnesium 4gm in 100ml NS 100 ML IV PRN (08:40)
[2021-01-10] MEDS: piperacillin/tazo 3.375gm/50ml 50 ML IV SCH ×2 (10:02→16:02)
[2021-01-10] MEDS: dexamethasone 4mg/ml inj IV SCH ×2 (10:02→20:11)
[2021-01-10] MEDS: heparin, porcine 5000 units/ml vial SQ SCH ×2 (10:02→20:12)
[2021-01-10] MEDS: normal saline 1000ml 1,000 ML IV SCH ×2 (10:03→19:20)
[2021-01-10 10:47] LABS: PROTEIN,URINE TRACE mg/dl (Neg)
--- NOTE | 2021-01-10 13:31 | NUR ---
relieving RN for break, pt is eating lunch, kyung well, no n/v
--- NOTE | 2021-01-10 13:43 | NUR ---
report to Elli RN, pt going short stay
[2021-01-10 14:30] VITALS: BP 133/78
[2021-01-10] MEDS ORDERED: LOPE2CAP PO (15:00)
[2021-01-10] MEDS ORDERED: QUE9P PO (15:00)
[2021-01-10] MEDS ORDERED: PSYL575P22 PO (15:00)
[2021-01-10] MEDS ORDERED: LEVO100T PO (15:00)
[2021-01-10] MEDS ORDERED: PANT-47 PO (15:00)
[2021-01-10] MEDS ORDERED: ASPI-611 PO (15:00)
[2021-01-10] MEDS ORDERED: GABA300C PO (15:00)
[2021-01-10] MEDS ORDERED: HYDR-3972 PO (15:18)
[2021-01-10] MEDS ORDERED: LIPA1CAP18 PO (15:18)
[2021-01-10] MEDS ORDERED: OPIU10TI5 PO (15:18)
[2021-01-10] MEDS: potassium Cl 20 mEq SR tablet PO PRN ×2 (16:07→20:19)
[2021-01-10 17:00] VITALS: BP 112/81
[2021-01-10 17:30] VITALS: BP 122/73
--- NOTE | 2021-01-10 17:30 | NUR ---
patient transferred to u 3012C in stable condition, family followed behind. no chart from ER to take up. Patient had several bowel movements, told YINA Hall that bottom is excoriated and open from bowel movements the past month per family.
--- NOTE | 2021-01-10 17:30 | NUR ---
Patient transferred to unit. VSS and telemetry placed no patient. Zoysn still infusing. Bed is locked, lowered, and side rails up x2. Call light and bedside table with in reach. States needs met at this time. Family at bedside.
[2021-01-10 18:00] VITALS: BP 141/72
--- NOTE | 2021-01-10 18:14 | NUR ---
Patient in room PCU 3012. I have received report from Isabel BRAN and had the opportunity to ask questions and assume patient care.
[2021-01-10] MEDS: K and/or MAG REPLACEMENT MC SCH (20:10)
[2021-01-10] MEDS ORDERED: pantoprazole 40 MG vial IV ONE (20:25)
[2021-01-10] MEDS ORDERED: insulin regular, human U-100 3ml vial - multi-dose SQ SCH (20:50)
[2021-01-10] MEDS ORDERED: dextrose ORAL solution 15 GM/59 ML bottle PO PRN ×2 (20:50)
[2021-01-10] MEDS ORDERED: MESSAGE TO PHARMACY PO ONE (20:50)
[2021-01-10] MEDS ORDERED: insulin Lispro (HumaLOG) vial - multi-dose SQ SCH (20:50)
[2021-01-10] MEDS ORDERED: dextrose 50%-water 50ml dispensing syringe IV PRN ×2 (20:50)
[2021-01-10] MEDS ORDERED: glucagon, human recombinant 1mg kit SUBCUT PRN (20:50)
[2021-01-10] MEDS: insulin glargine (Lantus) pen - multi-dose SQ SCH (21:00)
[2021-01-10] MEDS: diatr meglu/diatrizoate 30ml oral sol.-(3 dose) bottle PO SCH (21:45)
[2021-01-10 22:00] VITALS: BP 124/60
[2021-01-11] MEDS: piperacillin/tazo 3.375gm/50ml 50 ML IV SCH ×3 (00:29→16:01)
[2021-01-11] MEDS: temazepam 15mg capsule PO PRN ×2 (00:36→20:59)
[2021-01-11] MEDS: normal saline 1000ml 1,000 ML IV SCH ×2 (00:42→15:20)
--- NOTE | 2021-01-11 00:42 | NUR ---
PAGER ID: [phone] MESSAGE: [id number], ARYAN BEE-R/O CDIFF, INCONTINENT STOOL EPISODES-CAN WE GET IMODIUM PLEASE? ILZZY JONAS [phone] U
[2021-01-11] MEDS: loperamide 2mg capsule PO PRN ×2 (01:08→12:14)
[2021-01-11 02:00] VITALS: BP 121/70
[2021-01-11 02:20] LABS: OCCULT BLOOD STOOL POSITIVE (Neg)
[2021-01-11 06:00] VITALS: BP 125/70
--- NOTE | 2021-01-11 06:26 | NUR ---
Problems reprioritized. Patient report given, questions answered & plan of care reviewed with ZUHAIR BRAN.
[2021-01-11] MEDS: levoTHYROXINE 100mcg tablet PO SCH (07:44)
[2021-01-11] MEDS: diatr meglu/diatrizoate 30ml oral sol.-(3 dose) bottle PO SCH ×2 (07:44→10:08)
[2021-01-11] MEDS: dexamethasone 4mg/ml inj IV SCH ×2 (07:44→20:56)
[2021-01-11] MEDS: docusate sod 100mg capsule PO SCH ×2 (07:57→20:00)
[2021-01-11] MEDS: K and/or MAG REPLACEMENT MC SCH ×2 (08:00→20:00)
[2021-01-11] MEDS ORDERED: pantoprazole 40 MG vial IV SCH (08:00)
[2021-01-11] MEDS: heparin, porcine 5000 units/ml vial SQ SCH ×2 (08:00→20:54)
--- NOTE | 2021-01-11 09:15 | NUR ---
Pt with T2DM with A1c 7.7% 12/21, down from 8.6% 11/13 per EMR. Pt seen by RD at previous admit 11/15 for written and verbal DM education and RD contact information. No further education planned at this time. Will continue to follow. Addendum: 01/11/21 at [address] Amended: Links added.
[2021-01-11] MEDS ORDERED: VANCOMYCIN LEVEL IV ONE (09:30)
[2021-01-11] MEDS ORDERED: diphenoxylate/atropine tablet (Lomotil) PO PRN (09:50)
[2021-01-11] MEDS ORDERED: LORazepam 0.5 MG tablet PO PRN (09:50)
[2021-01-11] MEDS ORDERED: vancomycin/NS 1 GM ADD-VANTAGE 250 ML X 1 DOSE IV SCH (10:00)
[2021-01-11] MEDS ORDERED: iohexol 300mg/ml 100ml inj. ONE (10:10)
[2021-01-11] MEDS: psyllium seed 3.4 gm packet PO SCH ×2 (10:20→21:03)
[2021-01-11 10:30] LABS: ALANINE AMINOTRANSFERASE 19 U/L (12-78); ALBUMIN 2.1 G/DL (3.4-5.0); ALBUMIN/GLOBULIN RATIO 0.5 (1.1-1.5); ALKALINE PHOSPHATASE 159 IU/L (46-116); ANION GAP 11 (8-16); ASPARTATE AMINO TRANSFERASE 38 U/L (10-37); BILIRUBIN,TOTAL 0.3 MG/DL (0.1-1.0); BLOOD UREA NITROGEN 13 MG/DL (7-18); BUN/CREATININE RATIO 17.1 (6.6-38.0); CALCIUM 8.5 MG/DL (8.5-10.1); CHLORIDE 110 MMOL/L (99-107); CREATININE 0.76 MG/DL (0.40-0.90); GLUCOSE 146 MG/DL (70-104); PHOSPHORUS 3.5 MG/DL (2.3-4.5); SODIUM 140 MMOL/L (135-145); TOTAL PROTEIN 6.3 G/DL (6.4-8.2); eGFR 74 ML/MIN
[2021-01-11 10:31] LABS: POTASSIUM 4.8 MMOL/L (3.5-5.1)
[2021-01-11 11:00] VITALS: BP 108/62
[2021-01-11] MEDS: busPIRone 5mg tablet PO SCH ×2 (11:48→20:54)
[2021-01-11] MEDS: chloestyramine/aspartame 4gm packet PO SCH (11:49)
[2021-01-11] MEDS: gabapentin 300mg capsule PO SCH ×2 (12:14→20:54)
[2021-01-11 14:20] LABS: BASOPHILS % (AUTO) 0.2 % (0-1); EOSINOPHILS % (AUTO) 0 % (0-6); HEMATOCRIT 33.1 % (35.0-45.0); HEMOGLOBIN 10.9 g/dl (12.0-16.0); LYMPHOCYTES # (AUTO) 0.8 X10'3 (1.1-4.8); LYMPHOCYTES % (AUTO) 14.6 % (21-51); MEAN CORPUSCULAR HEMOGLOBIN 33.6 PG (27.0-31.0); MEAN CORPUSCULAR HGB CONC 32.9 g/dL (33.0-36.5); MEAN CORPUSCULAR VOLUME 101.9 FL (78-98); MEAN PLATELET VOLUME 7.8 FL (7.4-10.4); MONOCYTES # (AUTO) 0.5 X10'3 (0-0.9); MONOCYTES % (AUTO) 9.3 % (2-12); NEUTROPHILS # (AUTO) 4.1 X10'3 (1.8-7.7); NEUTROPHILS % (AUTO) 75.9 % (42-75); PLATELET COUNT 260 X10'3 (140-440); RED BLOOD COUNT 3.25 X10'6 (4.20-5.60); RED CELL DISTRIBUTION WIDTH 16.9 % (11.5-14.5); WHITE BLOOD COUNT 5.4 X10'3 (4.5-11.0)
[2021-01-11] MEDS: LIPASE/PROTEASE/AMYLASE 16,800 UNIT CAPSULE.DR PO SCH ×2 (15:00→18:00)
[2021-01-11 18:00] VITALS: BP 102/60
--- NOTE | 2021-01-11 18:07 | NUR ---
Problems reprioritized. Patient report given, questions answered & plan of care reviewed with LIZZY BRAN.
--- NOTE | 2021-01-11 18:09 | NUR ---
Patient in room PCU 3012. I have received report from ZUHAIR BRAN and had the opportunity to ask questions and assume patient care.
[2021-01-11] MEDS: loperamide 2mg capsule PO SCH (20:55)
[2021-01-11] MEDS: insulin glargine (Lantus) pen - multi-dose SQ SCH (20:58)
[2021-01-11] MEDS ORDERED: atorvastatin 20mg tablet PO SCH (21:00)
[2021-01-11] MEDS ORDERED: aspirin 81mg, enteric-coated 1 TAB TABLET.DR PO SCH (21:00)
[2021-01-11] MEDS: HYDROcodone/acetaminophen 10/325mg tab PO PRN (21:03)
--- NOTE | 2021-01-11 21:59 | NUR ---
Via telephone, Dr. Bay stated, based on CT results and medical assessment, patient may go home in am. Juan BRAN
[2021-01-11 22:00] VITALS: BP 107/56
[2021-01-11] MEDS: NORMAL SALINE IV SCH (23:26)
[2021-01-11] MEDS: VANCOMYCIN IV SCH (23:26)
[2021-01-12] MEDS: piperacillin/tazo 3.375gm/50ml 50 ML IV SCH ×2 (00:38→08:21)
[2021-01-12] MEDS: normal saline 1000ml 1,000 ML IV SCH ×2 (01:20→11:20)
[2021-01-12 02:00] VITALS: BP 122/68
[2021-01-12 06:00] VITALS: BP 128/68
--- NOTE | 2021-01-12 06:52 | NUR ---
Patient in room PCU 3012. I have received report from Saima BRAN and had the opportunity to ask questions and assume patient care.
[2021-01-12 07:17] LABS: BASOPHILS % (AUTO) 0.2 % (0-1); EOSINOPHILS % (AUTO) 0 % (0-6); HEMATOCRIT 30.1 % (35.0-45.0); LYMPHOCYTES # (AUTO) 0.7 X10'3 (1.1-4.8); MEAN CORPUSCULAR HEMOGLOBIN 33.5 PG (27.0-31.0); MEAN CORPUSCULAR HGB CONC 33.2 g/dL (33.0-36.5); MEAN PLATELET VOLUME 8.1 FL (7.4-10.4); MONOCYTES # (AUTO) 0.4 X10'3 (0-0.9); MONOCYTES % (AUTO) 8.6 % (2-12); NEUTROPHILS # (AUTO) 3.5 X10'3 (1.8-7.7); NEUTROPHILS % (AUTO) 76.2 % (42-75); PLATELET COUNT 235 X10'3 (140-440); RED BLOOD COUNT 2.98 X10'6 (4.20-5.60); RED CELL DISTRIBUTION WIDTH 17.2 % (11.5-14.5); WHITE BLOOD COUNT 4.6 X10'3 (4.5-11.0)
[2021-01-12 07:42] LABS: ALANINE AMINOTRANSFERASE 17 U/L (12-78); ALBUMIN 1.9 G/DL (3.4-5.0); ALBUMIN/GLOBULIN RATIO 0.6 (1.1-1.5); ALKALINE PHOSPHATASE 116 IU/L (46-116); ANION GAP 8 (8-16); ASPARTATE AMINO TRANSFERASE 21 U/L (10-37); BILIRUBIN,TOTAL 0.2 MG/DL (0.1-1.0); BLOOD UREA NITROGEN 15 MG/DL (7-18); CALCIUM 8.2 MG/DL (8.5-10.1); CHLORIDE 111 MMOL/L (99-107); CREATININE 0.79 MG/DL (0.40-0.90); GLUCOSE 193 MG/DL (70-104); MAGNESIUM 1.8 MG/DL (1.5-2.4); PHOSPHORUS 3.7 MG/DL (2.3-4.5); POTASSIUM 4.3 MMOL/L (3.5-5.1); SODIUM 142 MMOL/L (135-145); TOTAL CARBON DIOXIDE 22.8 MMOL/L (24-32); TOTAL PROTEIN 5.1 G/DL (6.4-8.2); eGFR 70 ML/MIN
[2021-01-12] MEDS: docusate sod 100mg capsule PO SCH (08:00)
[2021-01-12] MEDS ORDERED: pantoprazole 40mg Tablet.DR PO SCH (08:00)
[2021-01-12] MEDS: K and/or MAG REPLACEMENT MC SCH (08:00)
[2021-01-12] MEDS ORDERED: levoTHYROXINE 100mcg tablet PO SCH (08:00)
[2021-01-12] MEDS: heparin, porcine 5000 units/ml vial SQ SCH (08:02)
[2021-01-12] MEDS: gabapentin 300mg capsule PO SCH ×2 (08:02→14:15)
[2021-01-12] MEDS: dexamethasone 4mg/ml inj IV SCH (08:02)
[2021-01-12] MEDS: loperamide 2mg capsule PO SCH (08:02)
[2021-01-12] MEDS: levoTHYROXINE 100mcg tablet PO SCH (08:02)
[2021-01-12] MEDS: LIPASE/PROTEASE/AMYLASE 16,800 UNIT CAPSULE.DR PO SCH ×2 (08:03→14:14)
[2021-01-12] MEDS: busPIRone 5mg tablet PO SCH (08:03)
[2021-01-12] MEDS: psyllium seed 3.4 gm packet PO SCH (08:03)
[2021-01-12] MEDS: chloestyramine/aspartame 4gm packet PO SCH (08:04)
[2021-01-12] MEDS ORDERED: PANT40TA54 PO (10:42)
[2021-01-12] MEDS ORDERED: METR-159 PO (10:42)
[2021-01-12] MEDS ORDERED: CEFD300C3 PO (10:42)
[2021-01-12 11:00] VITALS: BP 131/64
[2021-01-12] MEDS: HYDROcodone/acetaminophen 10/325mg tab PO PRN (11:01)
[2021-01-12] MEDS ORDERED: VITC500T PO (14:06)
[2021-01-12] MEDS ORDERED: FERR325T28 PO (14:06)
[2021-01-12] MEDS: VANCOMYCIN IV SCH (14:11)
[2021-01-12] MEDS: NORMAL SALINE IV SCH (14:11)
[2021-01-12 15:00] VITALS: BP 127/72
--- NOTE | 2021-01-12 17:00 | NUR ---
Patient safe for discharge per providers orders. Medication and discharge instruction discussed with ability to answer any questions. PIV discontinued cannula intact. Telemetry discontinued. Belonging sent with patient. Patient to lobby by family. Patient went home with family in private vehicle.
[2021-01-12] MEDS ORDERED: VANCOMYCIN LEVEL IV ONE (22:30)
== END 2021-01-12 16:59 | disposition home health service (06) | DRG 871 ==
LOC: ER 20:46 → UNDOADMIN 23:21 → ED HOLD 23:21 → PCU 3S 01-10 17:25 → ED HOLD 01-10 17:25
PROVIDERS: ADMIT Family Medicine; ATTEND Family Medicine
PROC: BW211ZZ Computerized Tomography (CT Scan) of Abdomen and Pelvis using Low Osmolar Contrast (ICD-10-PCS; principal; 2021-01-11)
DX: A41.9 Sepsis, unspecified organism (principal); I50.33 Acute on chronic diastolic (congestive) heart failure; G93.41 Metabolic encephalopathy; I21.A1 Myocardial infarction type 2; N39.0 Urinary tract infection, site not specified; C25.9 Malignant neoplasm of pancreas, unspecified; K52.9 Noninfective gastroenteritis and colitis, unspecified; E86.1 Hypovolemia; D64.9 Anemia, unspecified; E87.6 Hypokalemia; E86.0 Dehydration; Z20.822 Contact with and (suspected) exposure to COVID-19; E11.9 Type 2 diabetes mellitus without complications; E03.9 Hypothyroidism, unspecified; Z87.11 Personal history of peptic ulcer disease; Z91.14 Patient's other noncompliance with medication regimen; Z91.19 Patient's noncompliance with other medical treatment and regimen; Z79.899 Other long term (current) drug therapy
CPT/HCPCS: 36415; 70450; 74177; 80053; 80061; 80202; 80320; 81001; 81003; 82140; 82272; 82550; 82948; 83605; 83735; 83880; 84100; 84145; 84439; 84443; 84480; 84484; 85007; 85025; 85610; 85730; 87040; 87045; 87046; 87077; 87081; 87088; 87186; 87635; 89055; 93005; 93306; 96360; 96361; 99285; C9113; G0378; J1100; J1644; J1815; J2270; J2405; J2543; J3370; J7030; Q9963; Q9967